=== PATIENT | female | born 1930 | race Caucasian/White ===

== ENCOUNTER 2017-04-01 14:50 | Emergency (ER) | payer OTHER ==
[2017-04-01 15:50] VITALS: BP 155/76; BMI 22.3
--- NOTE | 2017-04-01 16:19 | DR.EXTPAIN ---
HPI - Time seen Time seen: 16:17 - PCP Primary Care Physician: JENNA - HPI Comment HPI Comment: PAIN INCREASE WHEN PATIENT TRY WALKING. - Complaint/Symptoms Chief Complaint Doctor Comments: FOOT PAIN. INJURED RT FOOT LAST NIGHT. Chief Complaint:: INJURED TOE/FOOT (RIGHT) LAST NIGHT. EDEMA AND DISCOLORATION NOTED TO GREAT TOE. HX OF FX PREVIOUSLY. PAINFUL WHEN TRYING TO WALK - Nurses notes reviewed Nurses Notes Review: Yes - Source History Provided: Patient, Family Member - Mode of arrival Mode of Arrival: Wheelchair - Timing Onset of Chief Complaint: 03/31/17 - Context History of: None - Associated signs and symptoms Associated Signs and Symptoms: Pain PMH - PMH Past Medical History: Yes Past Medical History: Anemia, CHF, CVA, Diabetes, Dyslipidemia, Hypertension, [place] Past Surgical History: Yes Past Surgical History Comment: CATARACTS - Family History History of Family Medical Conditions: Yes Family Medical History: Diabetes Mellitus, [place], Coronary Artery Disease, Heart Failure, Hypertension - Social History Type of Tobacco Use: None Alcohol Use: None Do you use any recreational Drugs:: No Lives With: Family Lives Where: Home - infectious screening In the last 2 months have you had wt loss of >10#?: YES Have you had fever, night sweats or hemotysis?: No Have you traveled outside the country in the last 6 months?: No Isolation: Standard ROS - Review of Systems Constitutional: No Symptoms Reported Eyes: No Symptoms Reported ENTM: No Symptoms Reported Respiratoy: No Symptoms Reported Cardiovascular: No Symptoms Reported Gastrointestinal/Abdominal: No Symptoms Reported Genitourinary: No Symptoms Reported Neurological: No Symptoms Reported Musculoskeletal: Right, Foot Integumentary: Bruises Hematologic/Lymphatic: Easy Bleeding, Easy Bruising Endocrine: No Symptoms Reported All Other Systems: Reviewed and Negative PE - Vital Signs Vitals: Temperature 97.9 F Pulse Rate 88 Respiratory Rate 18 Blood Pressure [Left Arm] 130/66 Blood Pressure 155/76 O2 Sat by Pulse Oximetry 97 - General Limitations: No Limitations General Appearance: Alert - Head Head Exam: Normal Inspection - Eyes Eye exam: Normal Appearance - ENT ENT Exam: Normal External Ear Exam - Neck Neck Exam: Normal Inspection - Chest Chest Inspection: Symmetric Chest Wall Rise - Respiratory Respiratory Exam: Normal Lung Sounds Bilat Respiratory Exam: Bilateral Clear to Auscultation - Cardiovascular Cardiovascular Exam: Regular Rate, Normal Rhythm, Normal Heart Sounds - Abdominal Exam Abdominal Exam: Normal Inspection - Extremities Extremities Exam: Tenderness (RIGHT FOOT. FOOT SWOLLEN AND TENDER), Joint Swelling (RIGHT GREAT TOE) - Lower Extremities Foot/Toe Exam: Tenderness, Swelling. negative: Full ROM Gait Exam: Observed & Limited by Pain - Back Back Exam: Normal Inspection - Neurological Neurological Exam: Alert, Oriented X3 - Skin Skin Exam: Erythema MDM - Differential Diagnosis Differential Diagnosis: Contusion (RT FOOT), Fracture (RT FOOT), Sprain (RT FOOT ) Course - Treatment Treatment: SEE ORDERS - Education/Counseling Education/Counseling: Patient, Family, Education Educated On: Diagnosis, Needs for Follow Up ROR - XRAY XRAY Interpreted by: Radiologist XRAY Findings: DISCUSS REPORT WITH PATIENT AND HER FAMILY. - Diagnosis Discharge Problem: Contusion of foot, left Qualifiers: Encounter type: initial encounter Qualified Code(s): S90.32XA - Contusion of left foot, initial encounter Fracture of foot bone, left, closed Qualifiers: Encounter type: initial encounter Qualified Code(s): S92.902A - Unspecified fracture of left foot, initial encounter for closed fracture - Discharge Plan Condition: Stable - Follow ups/Referrals Follow ups/Referrals: Oli Cartagena [Primary Care Provider] - 3 days DIEGO HANKINS [CONSULTING PHYSICIAN] - 3 days - Instructions Instructions: Foot Contusion, [id number], Metacarpal Fracture, [id number] Additional Instructions: RETURN TO ED IF WORSE.
--- NOTE | 2017-04-01 17:19 | RAD ---
History: Fall and right foot pain from fall yesterday Study: Three views right foot. Comparison: August 21, 2016 Findings: There is osteopenia. There is a nondisplaced fracture of the distal 4th metatarsal of unce rtain age. Some callus formation is suggested. This however is new since August 21. There is dorsa l soft tissue swelling. No significant osteophyte formation is demonstrated. Impression: 1. Nondisplaced fracture of uncertain age of the distal 4th metatarsal 2. Severe osteopenia. Dorsal soft tissue swelling. Reported By:
== END 2017-04-01 17:54 | disposition home or self-care (01) ==
LOC: ER 16:00
DX: S90.32XA Contusion of left foot, initial encounter (principal); S92.902A Unspecified fracture of left foot, initial encounter for closed fracture; M85.80 Other specified disorders of bone density and structure, unspecified site; W19.XXXA Unspecified fall, initial encounter; Y92.9 Unspecified place or not applicable; M79.89 Other specified soft tissue disorders
CPT/HCPCS: 73630; 99282

== ENCOUNTER 2017-10-07 11:24 | Emergency (ER) | payer OTHER ==
[2017-10-07 11:28] VITALS: BP 100/51; BMI 22.6
[2017-10-07] MEDS ORDERED: ROCEPHIN VIAL 500 MG IM ONE (11:47)
--- NOTE | 2017-10-07 11:47 | DR.GENAD ---
HPI - PCP Primary Care Physician: JENNA - Complaint/Symptoms Chief Complaint Doctors Comments: Patient admits to abscess jaw secondary to a tooth infection. The tooth is now broken off. She admits to seeing dentist if can next week. Chief Complaint:: RIGHT SIDE OF FACE SWOLLEN AND PAINFUL. PT. HAD A TOOTH ON THE TOP RIGHT SIDE BREAK OFF A LITTLE WHILE BACK, FACE BECAME SWOLLEN YESTERDAY - Source History Provided: Patient, Family Member - Mode of Arrival Mode of Arrival: Wheelchair - Timing Onset of Chief Complaint: 10/06/17 PMH - PMH Past Medical History: Yes Past Medical History: Anemia, CHF, CVA, Diabetes, Dyslipidemia, Hypertension, [place] Past Surgical History: Yes Past Surgical History Comment: CATARACTS - Family History History of Family Medical Conditions: Yes Family Medical History: Diabetes Mellitus, [place], Coronary Artery Disease, Heart Failure, Hypertension - Social History Does patient currently use any type of tobacco product: No Have you used tobacco products in the last 12 months: No Type of Tobacco Use: None Does any household member use tobacco: No Alcohol Use: None Do you use any recreational Drugs:: No Lives With: Family Lives Where: Home - infectious screening In the last 2 months have you had wt loss of >10#?: NO Have you had fever, night sweats or hemotysis?: No Have you traveled outside the country in the last 6 months?: No Isolation: Standard ROS - Review of Systems Eyes: No Symptoms Reported ENTM: No Symptoms Reported Respiratoy: No Symptoms Reported Cardiovascular: No Symptoms Reported Gastrointestinal/Abdominal: No Symptoms Reported Genitourinary: No Symptoms Reported Neurological: No Symptoms Reported Musculoskeletal: No Symptoms Reported Integumentary: No Symptoms Reported Hematologic/Lymphatic: No Symptoms Reported Endocrine: No Symptoms Reported Psychiatric: No Symptoms Reported All Other Systems: Reviewed and Negative PE - Vital Signs Vitals: Temperature 98.9 F Pulse Rate 96 Respiratory Rate 17 Blood Pressure [Left Arm] 130/66 Blood Pressure 100/51 O2 Sat by Pulse Oximetry 95 - General Limitations: No Limitations General Appearance: Alert, In No Apparent Distress - Head Head Exam: Normal Inspection, Atraumatic - Eyes Eye exam: Normal Appearance, PERRL, EOMI - ENT ENT Exam: Normal Exam External Ear Exam: Normal External Inspection TM/Canal Exam: Bilateral Normal Nose Exam: Normal Nose Exam Mouth Exam: Other (broken tooth #13, swollen right jaw) Throat Exam: Normal Inspection - Neck Neck Exam: Normal Inspection - Chest Chest Inspection: Normal Inspection - Respiratory Respiratory Exam: Normal Lung Sounds Bilat Respiratory Exam: Bilateral Clear to Auscultation - Cardiovascular Cardiovascular Exam: Regular Rate, Normal Rhythm - Abdominal Exam Abdominal Exam: Normal Inspection, Normal Bowel Sounds Abdominal Tenderness: negative: RUQ, RLQ, LUQ, LLQ, Epigastrium, Suprapubic, Diffuse, Mild, Moderate, Severe, Other - Extremities Extremities Exam: Normal Inspection - Back Back Exam: Normal Inspection - Neurologic Neurological Exam: Alert, Oriented X3, CN II-XII Intact - Psychiatric Psychiatric Exam: Normal Affect, Normal Mood - Skin Skin Exam: Warm, Dry - Diagnosis Discharge Problem: Dental abscess - Discharge Plan Condition: Stable - Follow ups/Referrals Follow ups/Referrals: Oli Cartagena [Primary Care Provider] - 3 days - Instructions
[2017-10-07] MEDS ORDERED: ROCEPHIN VIAL 500 MG ONE (11:48)
[2017-10-07] MEDS ORDERED: XYLOCAINE 1 % (PLAIN) ONE (11:48)
== END 2017-10-07 12:08 | disposition home or self-care (01) ==
LOC: ER 11:48
DX: K04.7 Periapical abscess without sinus (principal)
CPT/HCPCS: 96372; 99282; J0696; J2001

== ENCOUNTER 2018-01-14 11:02 | Emergency (ER) | payer OTHER ==
[2018-01-14 11:07] VITALS: BP 127/71; BMI 24.1
--- NOTE | 2018-01-14 11:36 | RAD ---
Examination: Right hand, three views History: Trauma Findings: No definite fracture or dislocation. There is marked soft tissue swelling over the dorsum o f the hand at metacarpal levels. There is osteopenia consistent with advanced age. Mild joint narrowi ng is present. Impression: Massive dorsal soft tissue swelling consistent with hematoma. No fracture identified. Reported By:
--- NOTE | 2018-01-14 11:48 | DR.EXTPAIN ---
HPI - Time seen Time seen: 11:40 - PCP Primary Care Physician: JENNA - Complaint/Symptoms Chief Complaint Doctor Comments: Bruise and swelling to right hand. Injury yesterday. Chief Complaint:: PT. HURT HER HAND WHILE GETTING OFF OF THE COMMODE LAST NIGHT. PT. C/O BRUISING, SWELLING, AND PAIN TO RIGHT HAND. LARGE HEMATOMA NOTED TO RIGHT HAND. - Nurses notes reviewed Nurses Notes Review: Yes - Source History Provided: Patient, Family Member - Mode of arrival Mode of Arrival: Wheelchair - Timing Onset of Chief Complaint: 01/13/18 PMH - PMH Past Medical History: Yes Past Medical History: Anemia, CHF, CVA, Diabetes, Dyslipidemia, Hypertension, [place] Past Surgical History: Yes Surgical History: Other Past Surgical History Comment: CATARACTS - Family History History of Family Medical Conditions: Yes Family Medical History: Diabetes Mellitus, [place], Coronary Artery Disease, Heart Failure, Hypertension - Social History Does patient currently use any type of tobacco product: No Have you used tobacco products in the last 12 months: No Type of Tobacco Use: None Does any household member use tobacco: No Alcohol Use: None Do you use any recreational Drugs:: No Lives With: Family Lives Where: Home - infectious screening In the last 2 months have you had wt loss of >10#?: NO Have you had fever, night sweats or hemotysis?: No Have you traveled outside the country in the last 6 months?: No Isolation: Standard ROS - Review of Systems Constitutional: No Symptoms Reported Eyes: No Symptoms Reported ENTM: No Symptoms Reported Respiratoy: No Symptoms Reported Cardiovascular: No Symptoms Reported Gastrointestinal/Abdominal: No Symptoms Reported Genitourinary: No Symptoms Reported Neurological: No Symptoms Reported Musculoskeletal: Right, Hand (pain) Integumentary: Bruises (right hand) Hematologic/Lymphatic: No Symptoms Reported Endocrine: No Symptoms Reported Psychiatric: No Symptoms Reported All Other Systems: Reviewed and Negative PE - Vital Signs Vitals: Temperature 98.7 F Pulse Rate 74 Respiratory Rate 17 Blood Pressure [Left Arm] 130/66 Blood Pressure 127/71 O2 Sat by Pulse Oximetry 95 - General Limitations: No Limitations General Appearance: Alert, In No Apparent Distress - Head Head Exam: Normal Inspection - Eyes Eye exam: Normal Appearance - ENT ENT Exam: Normal Exam - Neck Neck Exam: Normal Inspection - Chest Chest Inspection: Normal Inspection - Respiratory Respiratory Exam: Normal Lung Sounds Bilat - Cardiovascular Cardiovascular Exam: Regular Rate, Normal Rhythm - Abdominal Exam Abdominal Exam: Normal Inspection, Normal Bowel Sounds, Soft - Upper Extremities Shoulder Exam: Normal Inspection, Full ROM Arm Exam: Normal Inspection, Full ROM Elbow Exam: Normal Inspection, Full ROM Forearm Exam: Normal Inspection, Full ROM Hand Exam: Full ROM, Swelling (on dorsum), Ecchymosis (dorsum right hand), Other (hematoma dorsum right hand) Neuromotor Exam: Normal Exam - Neurological Neurological Exam: Alert, Oriented X3, CN II-XII Intact - Psychiatric Psychiatric Exam: Normal Affect, Normal Mood - Skin Skin Exam: Warm, Dry, Intact MDM - Differential Diagnosis Differential Diagnosis: Hematoma ROR - XRAY XRAY Interpreted by: Self (Rt. hand: No fracture. STS noted.) - Diagnosis Discharge Problem: Traumatic hematoma of hand - Discharge Plan Disposition: 01 HOME, SELF-CARE Condition: Stable - Follow ups/Referrals Follow ups/Referrals: Oli Cartagena [Primary Care Provider] - 3 days - Instructions
== END 2018-01-14 11:57 | disposition home or self-care (01) ==
LOC: ER 11:11
DX: S60.221A Contusion of right hand, initial encounter (principal); Y33.XXXA Other specified events, undetermined intent, initial encounter; Y92.9 Unspecified place or not applicable
CPT/HCPCS: 73130; 99282

== ENCOUNTER 2018-01-16 16:32 | Inpatient (IN) | payer OTHER ==
[2018-01-16 18:07] LABS: BASOPHILS % (AUTO) 0.3 % (0.2-1.0); EOSINOPHILS # (AUTO) 0.4 x10^3/uL (0.0-0.2); EOSINOPHILS % (AUTO) 4.5 % (0.9-2.9); HEMATOCRIT 36.4 % (36.0-47.0); HEMOGLOBIN 12.2 g/dL (12.0-16.0); LYMPHOCYTES # (AUTO) 1.3 X10^3/uL (1.3-2.9); LYMPHOCYTES % (AUTO) 14.9 % (21.0-51.0); MEAN CORPUSCULAR HEMOGLOBIN 32.6 pg (27.0-34.0); MEAN CORPUSCULAR HGB CONC 33.5 g/dL (33.0-35.0); MEAN CORPUSCULAR VOLUME 97.3 fL (80.0-100.0); MEAN PLATELET VOLUME 7.5 fL (7.4-11.0); MONOCYTES # (AUTO) 0.9 x10^3/uL (0.3-0.8); MONOCYTES % (AUTO) 9.9 % (0.0-13.0); NEUTROPHILS # (AUTO) 6.2 x10^3/uL (2.2-4.8); NEUTROPHILS % (AUTO) 70.4 % (42.0-75.0); PLATELET COUNT 303 X10^3/uL (150.0-450.0); RED BLOOD COUNT 3.74 X10^6/uL (3.5-5.4); WHITE BLOOD COUNT 8.7 X10^3/uL (3.6-10.0)
[2018-01-16 18:19] LABS: ALANINE AMINOTRANSFERASE 15 Units/L (12-78); ALBUMIN 4.1 g/dL (3.4-5.0); ALKALINE PHOSPHATASE 79 Units/L (46-116); ASPARTATE AMINO TRANSFERASE 15 Units/L (15-37); BLOOD UREA NITROGEN 27 mg/dL (7-18); CALCIUM 9.6 mg/dL (8.5-10.1); CARBON DIOXIDE 30.8 mmol/L (21-32); CHLORIDE 96 mmol/L (98-107); COR NA(FOR HYPERGLY) 139 mmol/L (136-145); CREATININE 1.34 mg/dL (0.55-1.02); SODIUM 136 mmol/L (136-145); TOTAL PROTEIN 9.3 g/dL (6.4-8.2); eGFR BLACK RACES 48 (>60); eGFR NON BLACK RACES 40 (>60)
[2018-01-16 19:58] VITALS: BMI 22.3
[2018-01-16] MEDS: NS 1000 ML 1,000 ML IV SCH (21:26)
[2018-01-16] MEDS: ZOSYN VIAL 3.375 GM 3.375 GM in NS 100 ML IV + SPIKE MINIBAG* 100 ML IV SCH ×2 (21:27→22:18)
[2018-01-17 05:12] LABS: BASOPHILS % (AUTO) 0.4 % (0.2-1.0); EOSINOPHILS # (AUTO) 0.3 x10^3/uL (0.0-0.2); EOSINOPHILS % (AUTO) 3.9 % (0.9-2.9); HEMATOCRIT 32.4 % (36.0-47.0); HEMOGLOBIN 10.9 g/dL (12.0-16.0); LYMPHOCYTES # (AUTO) 1.1 X10^3/uL (1.3-2.9); LYMPHOCYTES % (AUTO) 15.1 % (21.0-51.0); MEAN CORPUSCULAR HEMOGLOBIN 32.5 pg (27.0-34.0); MEAN CORPUSCULAR HGB CONC 33.6 g/dL (33.0-35.0); MEAN CORPUSCULAR VOLUME 96.7 fL (80.0-100.0); MEAN PLATELET VOLUME 7.8 fL (7.4-11.0); MONOCYTES # (AUTO) 0.8 x10^3/uL (0.3-0.8); MONOCYTES % (AUTO) 10.9 % (0.0-13.0); NEUTROPHILS # (AUTO) 5.3 x10^3/uL (2.2-4.8); NEUTROPHILS % (AUTO) 69.7 % (42.0-75.0); PLATELET COUNT 258 X10^3/uL (150.0-450.0); RED BLOOD COUNT 3.35 X10^6/uL (3.5-5.4); RED CELL DISTRIBUTION WIDTH 14.1 % (11.6-16.5); WHITE BLOOD COUNT 7.6 X10^3/uL (3.6-10.0)
[2018-01-17] MEDS: ZOSYN VIAL 3.375 GM 3.375 GM in NS 100 ML IV + SPIKE MINIBAG* 100 ML IV SCH ×3 (05:17→22:13)
[2018-01-17] MEDS: HumuLIN R SUBCUT PRN ×3 (05:19→17:15)
[2018-01-17 05:22] LABS: ALBUMIN 3.2 g/dL (3.4-5.0); CALCIUM 8.9 mg/dL (8.5-10.1); CARBON DIOXIDE 27.1 mmol/L (21-32); COR CA(FOR HYPOALB) 9.5 mg/dL (8.5-10.1); CREATININE 1.18 mg/dL (0.55-1.02); TOTAL PROTEIN 7.6 g/dL (6.4-8.2)
[2018-01-17] MEDS: NS 1000 ML 1,000 ML IV SCH ×2 (06:22→22:13)
--- NOTE | 2018-01-17 10:57 | DR.UPDATE ---
H&P Update History and Physical Update: WAS SEEN IN THE OFFICE ON 01/16/2018. SHE WAS ADMITTED FOR RIGHT HAND CELLULITIS AND HEMATOMA FOLLOWING A FALL. A H&P WAS COMPLETED PRIOR TO ADMISSION. PATIENT HAS BEEN SEEN AND EXAMINED WITH NO CHANGES NOTED TO H&P. Changes noted: NO Yes with the following:
[2018-01-17] MEDS: NEURONTIN CAP 100 MG PO SCH ×2 (13:06→20:45)
[2018-01-17] MEDS: HEMOCYTE-PLUS PO SCH (13:06)
[2018-01-17] MEDS: ISOSORBIDE MONONITRATE ER PO SCH (13:07)
[2018-01-17] MEDS: GLUCOPHAGE XR PO SCH ×2 (13:07→20:45)
[2018-01-17] MEDS: SYNTHROID 100 mcg TAB PO SCH (13:07)
[2018-01-17] MEDS: XANAX PO SCH ×2 (13:07→20:46)
[2018-01-17] MEDS: COMBIGAN EYE DROPS EACHEYE SCH ×2 (13:09→20:47)
[2018-01-17] MEDS: INSULIN DEGLUDEC 14 UNIT SC SCH (15:03)
[2018-01-17] MEDS: ANTIVERT TAB 25 MG PO SCH ×2 (15:31→20:45)
--- NOTE | 2018-01-17 18:41 | DR.PROGNOT ---
Hospital Progress Notes - Progress Note for Day of: Progress Note Date: 01/17/18 - Chief Complaint Chief Complaint: Rt hand is still swollen and tender , Pt is able to move all the fingers better than yesterday .. no active bleeding from the incision site on the dorsal aspect. - Past Medical Family Social History Allergies: Allergies gatifloxacin [From Tequin] Allergy (Verified 01/14/18 11:07) sulfamethoxazole [From Septra] Allergy (Verified 01/14/18 11:07) trimethoprim [From Septra] Allergy (Verified 01/14/18 11:07) - Vital Signs Vital Signs: Temperature 98.4 F Pulse Rate [Left Brachial] 82 Respiratory Rate 18 Blood Pressure [Left Arm] 129/81 Blood Pressure 127/71 O2 Sat by Pulse Oximetry 96 - Physical Exam Musculoskeletal: Hand (deep soft tissue hematoma with large area of ecchymosis involving the Rt hand with blisters .no expanding hematoma , and pt is having good ROM of all of the gingers . has good radial pulse) Speech Pattern: Clear, Appropriate - Laboratory and Diagnostics Result Diagrams: 01/17/18 04:10 01/17/18 04:10 Labs: 01/16/18 17:58 Hand - Right Gram Stain - Final 01/16/18 17:58 Hand - Right Wound Culture - Preliminary Laboratory WBC 7.6 X10^3/uL (3.6-10.0) 01/17/18 04:10 RBC 3.35 X10^6/uL (3.5-5.4) L 01/17/18 04:10 Hgb 10.9 g/dL (12.0-16.0) L 01/17/18 04:10 Hct 32.4 % (36.0-47.0) L 01/17/18 04:10 MCV 96.7 fL (80.0-100.0) 01/17/18 04:10 MCH 32.5 pg (27.0-34.0) 01/17/18 04:10 MCHC 33.6 g/dL (33.0-35.0) 01/17/18 04:10 RDW 14.1 % (11.6-16.5) 01/17/18 04:10 Plt Count 258 X10^3/uL (150.0-450.0) 01/17/18 04:10 MPV 7.8 fL (7.4-11.0) 01/17/18 04:10 Neut % 69.7 % (42.0-75.0) 01/17/18 04:10 Lymph % 15.1 % (21.0-51.0) L 01/17/18 04:10 [place] % 10.9 % (0.0-13.0) 01/17/18 04:10 Eos % 3.9 % (0.9-2.9) H 01/17/18 04:10 Baso % 0.4 % (0.2-1.0) 01/17/18 04:10 Neut # 5.3 x10^3/uL (2.2-4.8) H 01/17/18 04:10 Lymph # 1.1 X10^3/uL (1.3-2.9) L 01/17/18 04:10 [place] # 0.8 x10^3/uL (0.3-0.8) 01/17/18 04:10 Eos # 0.3 x10^3/uL (0.0-0.2) H 01/17/18 04:10 Baso # 0.0 X10^3/uL (0.0-0.1) 01/17/18 04:10 Absolute Nucleated RBC 0.0 /100WBC 01/17/18 04:10 Sodium 136 mmol/L (136-145) 01/17/18 04:10 Corrected Sodium 141 mmol/L (136-145) 01/17/18 04:10 Potassium 3.8 mmol/L (3.5-5.1) 01/17/18 04:10 Chloride 100 mmol/L (98-107) 01/17/18 04:10 Carbon Dioxide 27.1 mmol/L (21-32) 01/17/18 04:10 BUN 25 mg/dL (7-18) H 01/17/18 04:10 Creatinine 1.18 mg/dL (0.55-1.02) H 01/17/18 04:10 Est GFR (MDRD) Af Amer 56 (>60) L 01/17/18 04:10 Est GFR (MDRD) Non-Af 46 (>60) L 01/17/18 04:10 Glucose 301 mg/dL (65-99) H 01/17/18 04:10 POC Glucose (mg/dL) 338 mg/dL (65-99) H 01/17/18 16:12 Calcium 8.9 mg/dL (8.5-10.1) 01/17/18 04:10 Corrected Calcium 9.5 mg/dL (8.5-10.1) 01/17/18 04:10 Total Bilirubin 0.40 mg/dL (0.2-1.0) 01/17/18 04:10 AST 14 Units/L (15-37) L 01/17/18 04:10 ALT 15 Units/L (12-78) 01/17/18 04:10 Alkaline Phosphatase 61 Units/L (46-116) 01/17/18 04:10 Total Protein 7.6 g/dL (6.4-8.2) 01/17/18 04:10 Albumin 3.2 g/dL (3.4-5.0) L 01/17/18 04:10 Globulin 4.4 g/dL (2.5-4.5) 01/17/18 04:10 Albumin/Globulin Ratio 0.7 Ratio (1.1-2.1) L 01/17/18 04:10 - Assessment and Plan 1: large soft tissue hematoma Rt hand with multiple blisters and edema of the hand . pt has coagulopathy 2ed to several anticoagulants - Problem Patient Problems: keep Rt hand elevated all the time using sling , local care with antibiotics , observe for any vascular compromise or compartment syndrome .. no need for surgery now .
[2018-01-17] MEDS: NEOSPORIN OINT TOP PRN (19:55)
[2018-01-17] MEDS: ZOCOR TAB 40 MG PO SCH (20:46)
[2018-01-18] MEDS: ZOSYN VIAL 3.375 GM 3.375 GM in NS 100 ML IV + SPIKE MINIBAG* 100 ML IV SCH ×3 (05:24→21:15)
[2018-01-18 05:26] LABS: BASOPHILS # (AUTO) 0.1 X10^3/uL (0.0-0.1); BASOPHILS % (AUTO) 1.5 % (0.2-1.0); EOSINOPHILS # (AUTO) 0.6 x10^3/uL (0.0-0.2); EOSINOPHILS % (AUTO) 8.2 % (0.9-2.9); HEMATOCRIT 31.1 % (36.0-47.0); HEMOGLOBIN 10.2 g/dL (12.0-16.0); LYMPHOCYTES # (AUTO) 1.2 X10^3/uL (1.3-2.9); LYMPHOCYTES % (AUTO) 16.5 % (21.0-51.0); MEAN CORPUSCULAR HEMOGLOBIN 32.5 pg (27.0-34.0); MEAN CORPUSCULAR HGB CONC 32.9 g/dL (33.0-35.0); MEAN CORPUSCULAR VOLUME 98.8 fL (80.0-100.0); MEAN PLATELET VOLUME 7.8 fL (7.4-11.0); MONOCYTES # (AUTO) 0.7 x10^3/uL (0.3-0.8); MONOCYTES % (AUTO) 10.2 % (0.0-13.0); NEUTROPHILS # (AUTO) 4.6 x10^3/uL (2.2-4.8); NEUTROPHILS % (AUTO) 63.6 % (42.0-75.0); PLATELET COUNT 239 X10^3/uL (150.0-450.0); RED BLOOD COUNT 3.15 X10^6/uL (3.5-5.4); RED CELL DISTRIBUTION WIDTH 14.4 % (11.6-16.5); WHITE BLOOD COUNT 7.2 X10^3/uL (3.6-10.0)
[2018-01-18 05:30] LABS: ALBUMIN 2.8 g/dL (3.4-5.0); CALCIUM 8.2 mg/dL (8.5-10.1); COR CA(FOR HYPOALB) 9.2 mg/dL (8.5-10.1); CREATININE 1.36 mg/dL (0.55-1.02); TOTAL PROTEIN 6.9 g/dL (6.4-8.2)
[2018-01-18] MEDS: HumuLIN R SUBCUT PRN ×2 (05:59→13:20)
[2018-01-18] MEDS: NS 1000 ML 1,000 ML IV SCH ×2 (06:00→20:24)
[2018-01-18] MEDS: COMBIGAN EYE DROPS EACHEYE SCH ×2 (09:00→20:24)
[2018-01-18] MEDS ORDERED: NEOSPORIN OINT TOP SCH (09:00)
[2018-01-18] MEDS: HEMOCYTE-PLUS PO SCH (09:11)
[2018-01-18] MEDS: PLETAL PO SCH (09:11)
[2018-01-18] MEDS: ISOSORBIDE MONONITRATE ER PO SCH (09:11)
[2018-01-18] MEDS: NEURONTIN CAP 100 MG PO SCH ×2 (09:11→20:23)
[2018-01-18] MEDS: ANTIVERT TAB 25 MG PO SCH ×2 (09:11→20:23)
[2018-01-18] MEDS: MICRO K EXTEN CAP 10 MEQ PO SCH ×2 (09:11→20:24)
[2018-01-18] MEDS: GLUCOPHAGE XR PO SCH ×2 (09:12→20:23)
[2018-01-18] MEDS: SYNTHROID 100 mcg TAB PO SCH (09:12)
[2018-01-18] MEDS ORDERED: DILAUDID INJ ONE (10:02)
[2018-01-18] MEDS: INSULIN DEGLUDEC 14 UNIT SC SCH (11:51)
[2018-01-18] MEDS: XANAX PO SCH ×2 (11:52→20:22)
--- NOTE | 2018-01-18 11:57 | PCM.PROG ---
Progress Note - Progress Note for Day of Date: 01/17/18 - Subjective Subjective: WAS ADMITTED FOR RIGHT HAND CELLULITIS AND A HEMATOMA FOLLOWING A FALL AT HOME OVER THE WEEKEND. TODAY, SHE IS ALERT AND ORIENTED, SITTING UP IN BED ON MORNING ROUNDS. RIGHT ARM/HAND IS NOTED TO BE IN A SLING, ELEVATED ON PILLOWS. CONSULTED WITH PATIENT YESTERDAY AND MADE A SMALL INCISION TO THE TOP OF HAND TO DRAIN AND RELIEVE PRESSURE. FLUID FROM WOUND WAS CULTURED AND SENT TO LAB. RIGHT HAND CONTINUES TO BE SWOLLEN AND TENDER TODAY AND NOTED WITH BISTERS. THERE IS NORMAL CAPILLARY REFILL NOTED TO DIGITS OF RIGHT HAND. NO ACTIVE BLEEDING NOTED FROM SITE. SHE ONLY REPORTS MINOR PAIN THIS MORNING. HER VITALS THIS MORNING ARE 98.2-74-18-97%-183/86. LABS WERE OBTAINED. ABNORMAL LAB VALUES INCLUDE THE FOLLOWING: TBC 3.35, HGB 10.9, HCT 32.4, BUN 25, CREATININE 1.18, GLUCOSE 301, AST 14, ALBUMIN 3.2. BLOOD CULTURES AND WOUND CULTURES ARE PENDING. TODAY, WE WILL CONTINUE WITH IV ANTIBIOTICS AND WOUND CARE PER INSTRUCTIONS. WE PLAN TO FOLLOW UP WITH AM LABS AND CONTINUE TO MONITOR PATIENT FOR VASCULAR COMPROMIS OR COMPARTMENT SYNDROME. - Past Medical Family Social History Past Med/Fam/Surg Hx: No changes since H&P Allergies: Allergies gatifloxacin [From Tequin] Allergy (Verified 01/14/18 11:07) sulfamethoxazole [From Septra] Allergy (Verified 01/14/18 11:07) trimethoprim [From Septra] Allergy (Verified 01/14/18 11:07) - Review of Systems ROS: No change since H&P - Vital Signs and I&O's Vital Signs: Temperature 97.4 F Pulse Rate [Left Brachial] 63 Respiratory Rate 20 Blood Pressure [Left Arm] 133/60 Blood Pressure 127/71 O2 Sat by Pulse Oximetry 96 Intake and Output: Intake & Output 01/15/18 01/16/18 01/17/18 01/18/18 11:59 11:59 11:59 11:59 Intake Total 1110 1520 Balance 1110 1520 - Physical Exam Oriented: Normal Eyes: Normal Ear: Normal Nose: Normal Throat: Normal Respiratory: Normal Cardiovascular: Normal : Normal Auscultation: Bowel Sounds: Normal Palpation: Normal Tenderness: Normal Skin: Wound (RIGHT HAND SWOLLEN, TENDER, RED, BLISTERS) Musculoskeletal: Right, Hand (deep soft tissue hematoma with large area of ecchymosis involving the Rt hand with blisters .no expanding hematoma , and pt is having good ROM of all of the gingers . has good radial pulse) Psychiatric: Normal Mood Description: Calm Affect: Normal Speech Pattern: Clear, Appropriate - Laboratory and Diagnostics Result Diagrams: 01/18/18 04:30 01/18/18 04:30 Labs: 01/16/18 17:45 Blood Blood Culture - Preliminary 01/16/18 17:55 Blood Blood Culture - Preliminary 01/16/18 17:58 Hand - Right Gram Stain - Final 01/16/18 17:58 Hand - Right Wound Culture - Preliminary Laboratory WBC 7.2 X10^3/uL (3.6-10.0) 01/18/18 04:30 RBC 3.15 X10^6/uL (3.5-5.4) L 01/18/18 04:30 Hgb 10.2 g/dL (12.0-16.0) L 01/18/18 04:30 Hct 31.1 % (36.0-47.0) L 01/18/18 04:30 MCV 98.8 fL (80.0-100.0) 01/18/18 04:30 MCH 32.5 pg (27.0-34.0) 01/18/18 04:30 MCHC 32.9 g/dL (33.0-35.0) L 01/18/18 04:30 RDW 14.4 % (11.6-16.5) 01/18/18 04:30 Plt Count 239 X10^3/uL (150.0-450.0) 01/18/18 04:30 MPV 7.8 fL (7.4-11.0) 01/18/18 04:30 Neut % 63.6 % (42.0-75.0) 01/18/18 04:30 Lymph % 16.5 % (21.0-51.0) L 01/18/18 04:30 [place] % 10.2 % (0.0-13.0) 01/18/18 04:30 Eos % 8.2 % (0.9-2.9) H 01/18/18 04:30 Baso % 1.5 % (0.2-1.0) H 01/18/18 04:30 Neut # 4.6 x10^3/uL (2.2-4.8) 01/18/18 04:30 Lymph # 1.2 X10^3/uL (1.3-2.9) L 01/18/18 04:30 [place] # 0.7 x10^3/uL (0.3-0.8) 01/18/18 04:30 Eos # 0.6 x10^3/uL (0.0-0.2) H 01/18/18 04:30 Baso # 0.1 X10^3/uL (0.0-0.1) 01/18/18 04:30 Absolute Nucleated RBC 0.0 /100WBC 01/18/18 04:30 Sodium 139 mmol/L (136-145) 01/18/18 04:30 Corrected Sodium 144 mmol/L (136-145) 01/18/18 04:30 Potassium 3.9 mmol/L (3.5-5.1) 01/18/18 04:30 Chloride 103 mmol/L (98-107) 01/18/18 04:30 Carbon Dioxide 27.0 mmol/L (21-32) 01/18/18 04:30 BUN 28 mg/dL (7-18) H 01/18/18 04:30 Creatinine 1.36 mg/dL (0.55-1.02) H 01/18/18 04:30 Est GFR (MDRD) Af Amer 47 (>60) L 01/18/18 04:30 Est GFR (MDRD) Non-Af 39 (>60) L 01/18/18 04:30 Glucose 310 mg/dL (65-99) H 01/18/18 04:30 POC Glucose (mg/dL) 320 mg/dL (65-99) H 01/18/18 05:38 Calcium 8.2 mg/dL (8.5-10.1) L 01/18/18 04:30 Corrected Calcium 9.2 mg/dL (8.5-10.1) 01/18/18 04:30 Total Bilirubin 0.40 mg/dL (0.2-1.0) 01/18/18 04:30 AST 12 Units/L (15-37) L 01/18/18 04:30 ALT 16 Units/L (12-78) 01/18/18 04:30 Alkaline Phosphatase 54 Units/L (46-116) 01/18/18 04:30 Total Protein 6.9 g/dL (6.4-8.2) 01/18/18 04:30 Albumin 2.8 g/dL (3.4-5.0) L 01/18/18 04:30 Globulin 4.1 g/dL (2.5-4.5) 01/18/18 04:30 Albumin/Globulin Ratio 0.7 Ratio (1.1-2.1) L 01/18/18 04:30 - Plan (1) Cellulitis of hand, right Status: Acute Plan: IV ANTIBIOTICS, WOUND CARE, CONTINUE TO MONTIOR (2) Hematoma Status: Acute Plan: IV ANTIBIOTICS, WOUND CARE, CONTINUE TO MONTIOR
[2018-01-18] MEDS: ZOCOR TAB 40 MG PO SCH (20:25)
[2018-01-19] MEDS: ZOSYN VIAL 3.375 GM 3.375 GM in NS 100 ML IV + SPIKE MINIBAG* 100 ML IV SCH ×3 (05:11→21:45)
[2018-01-19 06:05] LABS: BASOPHILS % (AUTO) 0.4 % (0.2-1.0); EOSINOPHILS # (AUTO) 0.6 x10^3/uL (0.0-0.2); EOSINOPHILS % (AUTO) 7.3 % (0.9-2.9); HEMATOCRIT 30.7 % (36.0-47.0); HEMOGLOBIN 10.1 g/dL (12.0-16.0); LYMPHOCYTES # (AUTO) 1.1 X10^3/uL (1.3-2.9); MEAN CORPUSCULAR HEMOGLOBIN 32.7 pg (27.0-34.0); MEAN CORPUSCULAR VOLUME 99.3 fL (80.0-100.0); MEAN PLATELET VOLUME 7.8 fL (7.4-11.0); MONOCYTES # (AUTO) 0.6 x10^3/uL (0.3-0.8); MONOCYTES % (AUTO) 7.7 % (0.0-13.0); NEUTROPHILS # (AUTO) 5.8 x10^3/uL (2.2-4.8); NEUTROPHILS % (AUTO) 70.6 % (42.0-75.0); PLATELET COUNT 244 X10^3/uL (150.0-450.0); RED CELL DISTRIBUTION WIDTH 14.1 % (11.6-16.5); WHITE BLOOD COUNT 8.2 X10^3/uL (3.6-10.0)
[2018-01-19] MEDS: HumuLIN R SUBCUT PRN ×3 (06:24→17:03)
[2018-01-19 06:41] LABS: ALBUMIN 2.8 g/dL (3.4-5.0); CALCIUM 8.4 mg/dL (8.5-10.1); CARBON DIOXIDE 20.8 mmol/L (21-32); COR CA(FOR HYPOALB) 9.4 mg/dL (8.5-10.1); CREATININE 1.38 mg/dL (0.55-1.02)
[2018-01-19] MEDS: ISOSORBIDE MONONITRATE ER PO SCH (08:36)
[2018-01-19] MEDS: SYNTHROID 100 mcg TAB PO SCH (08:37)
[2018-01-19] MEDS: GLUCOPHAGE XR PO SCH ×2 (08:37→20:39)
[2018-01-19] MEDS: ANTIVERT TAB 25 MG PO SCH ×2 (08:37→20:38)
[2018-01-19] MEDS: PLETAL PO SCH (08:38)
[2018-01-19] MEDS: MICRO K EXTEN CAP 10 MEQ PO SCH ×2 (08:38→20:39)
[2018-01-19] MEDS: HEMOCYTE-PLUS PO SCH (08:39)
[2018-01-19] MEDS: NEURONTIN CAP 100 MG PO SCH ×2 (08:39→20:39)
[2018-01-19] MEDS: SNACK - Diabetic Appropriate PO SCH ×2 (08:42→20:40)
[2018-01-19] MEDS: NEOSPORIN OINT TOP PRN (09:00)
[2018-01-19] MEDS: COMBIGAN EYE DROPS EACHEYE SCH ×2 (10:05→20:40)
[2018-01-19] MEDS: INSULIN DEGLUDEC 14 UNIT SC SCH (10:07)
--- NOTE | 2018-01-19 12:14 | DR.PROGNOT ---
Hospital Progress Notes - Progress Note for Day of: Progress Note Date: 01/19/18 - Chief Complaint Chief Complaint: Rt hand is still swollen and tender , Pt is able to move all the fingers better than yesterday .. no active bleeding from the incision site on the dorsal aspect. - Past Medical Family Social History Past Med/Fam/Surg Hx: No changes since H&P Allergies: Allergies gatifloxacin [From Tequin] Allergy (Verified 01/14/18 11:07) sulfamethoxazole [From Septra] Allergy (Verified 01/14/18 11:07) trimethoprim [From Septra] Allergy (Verified 01/14/18 11:07) - Review Of Systems ROS: No change since H&P - Vital Signs Vital Signs: Temperature 97.7 F Pulse Rate [Left Brachial] 81 Respiratory Rate 18 Blood Pressure [Left Arm] 181/72 Blood Pressure 127/71 O2 Sat by Pulse Oximetry 92 - Physical Exam Oriented: Normal Eyes: Normal Ear: Normal Nose: Normal Throat: Normal Respiratory: Normal Cardiovascular: Normal : Normal GI:Auscultation: Normal GI:Palpation: Normal GI: Tenderness: Normal Skin: Wound (RIGHT HAND still SWOLLEN, the skin is not as tight but dusky looking . ,fingers are warm with good blood supply ..radial pulse is srtong..) Musculoskeletal: Right, Hand (deep soft tissue hematoma with large area of ecchymosis involving the Rt hand with blisters .no expanding hematoma , and pt is having good ROM of all of the gingers . has good radial pulse) Psychiatric: Normal Mood Description: Calm Affect: Normal Speech Pattern: Clear, Appropriate - Laboratory and Diagnostics Result Diagrams: 01/19/18 04:15 01/19/18 04:15 Labs: 01/16/18 17:58 Hand - Right Gram Stain - Final 01/16/18 17:58 Hand - Right Wound Culture - Preliminary 01/16/18 17:45 Blood Blood Culture - Preliminary 01/16/18 17:55 Blood Blood Culture - Preliminary Laboratory WBC 8.2 X10^3/uL (3.6-10.0) 01/19/18 04:15 RBC 3.10 X10^6/uL (3.5-5.4) L 01/19/18 04:15 Hgb 10.1 g/dL (12.0-16.0) L 01/19/18 04:15 Hct 30.7 % (36.0-47.0) L 01/19/18 04:15 MCV 99.3 fL (80.0-100.0) 01/19/18 04:15 MCH 32.7 pg (27.0-34.0) 01/19/18 04:15 MCHC 33.0 g/dL (33.0-35.0) 01/19/18 04:15 RDW 14.1 % (11.6-16.5) 01/19/18 04:15 Plt Count 244 X10^3/uL (150.0-450.0) 01/19/18 04:15 MPV 7.8 fL (7.4-11.0) 01/19/18 04:15 Neut % 70.6 % (42.0-75.0) 01/19/18 04:15 Lymph % 14.0 % (21.0-51.0) L 01/19/18 04:15 Caroline % 7.7 % (0.0-13.0) 01/19/18 04:15 Eos % 7.3 % (0.9-2.9) H 01/19/18 04:15 Baso % 0.4 % (0.2-1.0) 01/19/18 04:15 Neut # 5.8 x10^3/uL (2.2-4.8) H 01/19/18 04:15 Lymph # 1.1 X10^3/uL (1.3-2.9) L 01/19/18 04:15 Caroline # 0.6 x10^3/uL (0.3-0.8) 01/19/18 04:15 Eos # 0.6 x10^3/uL (0.0-0.2) H 01/19/18 04:15 Baso # 0.0 X10^3/uL (0.0-0.1) 01/19/18 04:15 Absolute Nucleated RBC 0.1 /100WBC 01/19/18 04:15 Sodium 136 mmol/L (136-145) 01/19/18 04:15 Corrected Sodium 143 mmol/L (136-145) 01/19/18 04:15 Potassium 4.5 mmol/L (3.5-5.1) 01/19/18 04:15 Chloride 102 mmol/L (98-107) 01/19/18 04:15 Carbon Dioxide 20.8 mmol/L (21-32) L 01/19/18 04:15 BUN 32 mg/dL (7-18) H 01/19/18 04:15 Creatinine 1.38 mg/dL (0.55-1.02) H 01/19/18 04:15 Est GFR (MDRD) Af Amer 46 (>60) L 01/19/18 04:15 Est GFR (MDRD) Non-Af 38 (>60) L 01/19/18 04:15 Glucose 391 mg/dL (65-99) H 01/19/18 04:15 POC Glucose (mg/dL) 310 mg/dL (65-99) H 01/19/18 11:58 Calcium 8.4 mg/dL (8.5-10.1) L 01/19/18 04:15 Corrected Calcium 9.4 mg/dL (8.5-10.1) 01/19/18 04:15 Total Bilirubin 0.50 mg/dL (0.2-1.0) 01/19/18 04:15 AST 13 Units/L (15-37) L 01/19/18 04:15 ALT 15 Units/L (12-78) 01/19/18 04:15 Alkaline Phosphatase 55 Units/L (46-116) 01/19/18 04:15 Total Protein 7.0 g/dL (6.4-8.2) 01/19/18 04:15 Albumin 2.8 g/dL (3.4-5.0) L 01/19/18 04:15 Globulin 4.2 g/dL (2.5-4.5) 01/19/18 04:15 Albumin/Globulin Ratio 0.7 Ratio (1.1-2.1) L 01/19/18 04:15 - Assessment and Plan 1: large soft tissue hematoma Rt hand with edema of the hand . pt has coagulopathy 2ed to several anticoagulants. might lose some of the skin on the dorsum of the Rt hand .. to keep same local care , hand elevation , ATB and debridement if needed - Problem Patient Problems: Patient Problems Cellulitis of hand, right (Acute) L03.113 Hematoma (Acute) T14.8XXA
[2018-01-19] MEDS: XANAX PO SCH (20:38)
[2018-01-19] MEDS: ZOCOR TAB 40 MG PO SCH (20:40)
[2018-01-20] MEDS: ZOSYN VIAL 3.375 GM 3.375 GM in NS 100 ML IV + SPIKE MINIBAG* 100 ML IV SCH (05:43)
[2018-01-20 06:01] LABS: ALBUMIN 2.6 g/dL (3.4-5.0); CALCIUM 8.1 mg/dL (8.5-10.1); CARBON DIOXIDE 26.1 mmol/L (21-32); COR CA(FOR HYPOALB) 9.2 mg/dL (8.5-10.1); CREATININE 1.14 mg/dL (0.55-1.02); TOTAL PROTEIN 6.4 g/dL (6.4-8.2)
[2018-01-20] MEDS: NS 1000 ML 1,000 ML IV SCH (06:01)
[2018-01-20] MEDS: HumuLIN R SUBCUT PRN (06:05)
[2018-01-20 06:18] LABS: BASOPHILS % (AUTO) 0.5 % (0.2-1.0); EOSINOPHILS # (AUTO) 0.6 x10^3/uL (0.0-0.2); EOSINOPHILS % (AUTO) 7.6 % (0.9-2.9); HEMATOCRIT 28.1 % (36.0-47.0); HEMOGLOBIN 9.5 g/dL (12.0-16.0); LYMPHOCYTES # (AUTO) 1.5 X10^3/uL (1.3-2.9); MEAN CORPUSCULAR HEMOGLOBIN 32.8 pg (27.0-34.0); MEAN CORPUSCULAR HGB CONC 33.8 g/dL (33.0-35.0); MEAN CORPUSCULAR VOLUME 97.1 fL (80.0-100.0); MEAN PLATELET VOLUME 7.7 fL (7.4-11.0); MONOCYTES # (AUTO) 0.7 x10^3/uL (0.3-0.8); MONOCYTES % (AUTO) 10.2 % (0.0-13.0); NEUTROPHILS # (AUTO) 4.5 x10^3/uL (2.2-4.8); NEUTROPHILS % (AUTO) 61.7 % (42.0-75.0); PLATELET COUNT 258 X10^3/uL (150.0-450.0); RED CELL DISTRIBUTION WIDTH 14.1 % (11.6-16.5); WHITE BLOOD COUNT 7.3 X10^3/uL (3.6-10.0)
[2018-01-20 08:04] VITALS: BP 187/77
[2018-01-20] MEDS: MICRO K EXTEN CAP 10 MEQ PO SCH (08:36)
[2018-01-20] MEDS: HEMOCYTE-PLUS PO SCH (08:36)
[2018-01-20] MEDS: GLUCOPHAGE XR PO SCH (08:36)
[2018-01-20] MEDS: SYNTHROID 100 mcg TAB PO SCH (08:36)
[2018-01-20] MEDS: ANTIVERT TAB 25 MG PO SCH (08:37)
[2018-01-20] MEDS: NEURONTIN CAP 100 MG PO SCH (08:37)
[2018-01-20] MEDS: ISOSORBIDE MONONITRATE ER PO SCH (08:37)
[2018-01-20] MEDS: PLETAL PO SCH (08:37)
[2018-01-20] MEDS: COMBIGAN EYE DROPS EACHEYE SCH (08:40)
[2018-01-20] MEDS: INSULIN DEGLUDEC 14 UNIT SC SCH (08:47)
--- NOTE | 2018-01-23 11:09 | PCM.PROG ---
Progress Note - Progress Note for Day of Date: 01/18/18 - Subjective Subjective: IS BEING TREATED FOR RIGHT HAND CELLULITIS AND A HEMATOMA FOLLOWING A FALL AT HOME OVER THE WEEKEND. SHE IS STATUS POST I&D OF HEMATOMA TO RIGHT HAND. TODAY, SHE IS ALERT AND ORIENTED, SITTING UP IN BED ON MORNING ROUNDS. RIGHT ARM/HAND IS NOTED TO BE IN A SLING, ELEVATED ON PILLOWS. RIGHT HAND CONTINUES TO BE SWOLLEN AND TENDER TODAY AND NOTED WITH BISTERS TO TOP OF HAND. THERE IS NORMAL CAPILLARY REFILL NOTED TO DIGITS OF RIGHT HAND. NO ACTIVE BLEEDING NOTED FROM SITE. PATIENT ALSO CONTINUES WITH COMPLAINTS OF GENERALIZED WEAKNESS. FAMILY STATES THAT SHE IS UNSTADY ON AMBULATION. HER VITALS THIS MORNING ARE 97.4-63-20-96%-133/60. LABS WERE OBTAINED. ABNORMAL LAB VALUES INCLUDE THE FOLLOWING: RBC 3.15, HGB 10.2, HCT 31.1, BUN 28, CREATININE 1.36, GFR 39, GLUCOSE 310, CALCIUM 8.2, AST 12, ALBUMIN 2.8. BLOOD CULTURES AND WOUND CULTURES ARE PENDING. TODAY, WE WILL CONSULT WITH PHYSICAL THERAPY TO EVAULATE PATIENT. WE WILL CONTINUE WITH IV ANTIBIOTICS AND WOUND CARE PER INSTRUCTIONS. WE PLAN TO FOLLOW UP WITH AM LABS AND CONTINUE TO MONITOR PATIENT FOR VASCULAR COMPROMISE OR COMPARTMENT SYNDROME. - Past Medical Family Social History Past Med/Fam/Surg Hx: No changes since H&P Allergies: Allergies gatifloxacin [From Tequin] Allergy (Verified 01/14/18 11:07) sulfamethoxazole [From Septra] Allergy (Verified 01/14/18 11:07) trimethoprim [From Septra] Allergy (Verified 01/14/18 11:07) - Review of Systems ROS: No change since H&P - Vital Signs and I&O's Vital Signs: Temperature 97.9 F Pulse Rate [Left Brachial] 68 Respiratory Rate 18 Blood Pressure [Left Arm] 187/77 Blood Pressure 127/71 O2 Sat by Pulse Oximetry 97 Intake and Output: Intake & Output 01/20/18 01/21/18 01/22/18 01/23/18 11:59 11:59 11:59 11:59 Intake Total 2025 Balance 2025 - Physical Exam Oriented: Normal Eyes: Normal Ear: Normal Nose: Normal Throat: Normal Respiratory: Normal Cardiovascular: Normal : Normal Auscultation: Bowel Sounds: Normal Palpation: Normal Tenderness: Normal Skin: Wound (RIGHT HAND still SWOLLEN, the skin is not as tight but dusky looking . ,fingers are warm with good blood supply ..radial pulse is srtong..) Musculoskeletal: Right, Hand (deep soft tissue hematoma with large area of ecchymosis involving the Rt hand with blisters .no expanding hematoma , and pt is having good ROM of all of the gingers . has good radial pulse) Psychiatric: Normal Mood Description: Calm Affect: Normal Speech Pattern: Clear, Appropriate - Laboratory and Diagnostics Result Diagrams: 01/20/18 04:55 01/20/18 04:55 Labs: 01/16/18 17:55 Blood Blood Culture - Final 01/16/18 17:45 Blood Blood Culture - Final 01/16/18 17:58 Hand - Right Gram Stain - Final 01/16/18 17:58 Hand - Right Wound Culture - Final Laboratory WBC 7.3 X10^3/uL (3.6-10.0) 01/20/18 04:55 RBC 2.90 X10^6/uL (3.5-5.4) L 01/20/18 04:55 Hgb 9.5 g/dL (12.0-16.0) L 01/20/18 04:55 Hct 28.1 % (36.0-47.0) L 01/20/18 04:55 MCV 97.1 fL (80.0-100.0) 01/20/18 04:55 MCH 32.8 pg (27.0-34.0) 01/20/18 04:55 MCHC 33.8 g/dL (33.0-35.0) 01/20/18 04:55 RDW 14.1 % (11.6-16.5) 01/20/18 04:55 Plt Count 258 X10^3/uL (150.0-450.0) 01/20/18 04:55 MPV 7.7 fL (7.4-11.0) 01/20/18 04:55 Neut % 61.7 % (42.0-75.0) 01/20/18 04:55 Lymph % 20.0 % (21.0-51.0) L 01/20/18 04:55 [place] % 10.2 % (0.0-13.0) 01/20/18 04:55 Eos % 7.6 % (0.9-2.9) H 01/20/18 04:55 Baso % 0.5 % (0.2-1.0) 01/20/18 04:55 Neut # 4.5 x10^3/uL (2.2-4.8) 01/20/18 04:55 Lymph # 1.5 X10^3/uL (1.3-2.9) 01/20/18 04:55 [place] # 0.7 x10^3/uL (0.3-0.8) 01/20/18 04:55 Eos # 0.6 x10^3/uL (0.0-0.2) H 01/20/18 04:55 Baso # 0.0 X10^3/uL (0.0-0.1) 01/20/18 04:55 Absolute Nucleated RBC 0.1 /100WBC 01/20/18 04:55 Sodium 139 mmol/L (136-145) 01/20/18 04:55 Corrected Sodium 143 mmol/L (136-145) 01/20/18 04:55 Potassium 4.0 mmol/L (3.5-5.1) 01/20/18 04:55 Chloride 105 mmol/L (98-107) 01/20/18 04:55 Carbon Dioxide 26.1 mmol/L (21-32) 01/20/18 04:55 BUN 26 mg/dL (7-18) H 01/20/18 04:55 Creatinine 1.14 mg/dL (0.55-1.02) H 01/20/18 04:55 Est GFR (MDRD) Af Amer 58 (>60) L 01/20/18 04:55 Est GFR (MDRD) Non-Af 48 (>60) L 01/20/18 04:55 Glucose 277 mg/dL (65-99) H 01/20/18 04:55 POC Glucose (mg/dL) 265 mg/dL (65-99) H 01/20/18 05:45 Calcium 8.1 mg/dL (8.5-10.1) L 01/20/18 04:55 Corrected Calcium 9.2 mg/dL (8.5-10.1) 01/20/18 04:55 Total Bilirubin 0.40 mg/dL (0.2-1.0) 01/20/18 04:55 AST 14 Units/L (15-37) L 01/20/18 04:55 ALT 13 Units/L (12-78) 01/20/18 04:55 Alkaline Phosphatase 48 Units/L (46-116) 01/20/18 04:55 Total Protein 6.4 g/dL (6.4-8.2) 01/20/18 04:55 Albumin 2.6 g/dL (3.4-5.0) L 01/20/18 04:55 Globulin 3.8 g/dL (2.5-4.5) 01/20/18 04:55 Albumin/Globulin Ratio 0.7 Ratio (1.1-2.1) L 01/20/18 04:55 - Plan (1) Cellulitis of hand, right Status: Acute Plan: IV ANTIBIOTICS, WOUND CARE, CONTINUE TO MONTIOR (2) Hematoma Status: Acute Plan: IV ANTIBIOTICS, WOUND CARE, CONTINUE TO MONTIOR (3) Generalized weakness Status: Acute Plan: PT CONSULT, GLUCERNA, CONTINUE TO MONITOR
--- NOTE | 2018-01-23 11:20 | PCM.PROG ---
Progress Note - Progress Note for Day of Date: 01/19/18 - Subjective Subjective: IS BEING TREATED FOR RIGHT HAND CELLULITIS AND A HEMATOMA FOLLOWING A FALL AT HOME OVER THE WEEKEND. SHE IS STATUS POST I&D OF HEMATOMA TO RIGHT HAND. TODAY, SHE IS ALERT AND ORIENTED, SITTING UP IN BED ON MORNING ROUNDS. RIGHT ARM/HAND REMAINS IN A SLING AND IS ELEVATED ON PILLOWS. SWELLING APPEARS TO HAVE DECREASED SINCE YESTERDAY, BUT REMAINS WITH BRUISING AND DISCOLORATION. SHE IS ABLE TO MOVE FINGERS MORE FREELY THAN SHE COULD YESTERDAY. THERE IS NORMAL CAPILLARY REFILL NOTED TO DIGITS OF RIGHT HAND. NO ACTIVE BLEEDING NOTED FROM SITE. PATIENT ALSO CONTINUES WITH COMPLAINTS OF GENERALIZED WEAKNESS. FAMILY STATES THAT SHE IS UNSTADY ON AMBULATION. HER VITALS THIS MORNING ARE 97.7-81-18-92%-181/72. LABS WERE OBTAINED. ABNORMAL LAB VALUES INCLUDE THE FOLLOWING: RBC 3.10, HGB 10.1, HCT 30.7, CARBON DIOXIDE 20.8 , BUN 32, CREATININE 1.38, GLUCOSE 391, CALCIUM 8.4, AST 13, ALBUMIN 2.8. BLOOD CULTURES AND WOUND CULTURES REPORT NO GROWTH. PHYSICAL THERAPY EVALUATED PATIENT AND RECOMMEND SKILLED THERAPY DUE TO UNSTEADY GAIT AND WEAKNESS. WE WILL CONTINUE WITH IV ANTIBIOTICS AND WOUND CARE PER INSTRUCTIONS. WE PLAN TO FOLLOW UP WITH AM LABS AND CONTINUE TO MONITOR PATIENT. - Past Medical Family Social History Past Med/Fam/Surg Hx: No changes since H&P Allergies: Allergies gatifloxacin [From Tequin] Allergy (Verified 01/14/18 11:07) sulfamethoxazole [From Septra] Allergy (Verified 01/14/18 11:07) trimethoprim [From Septra] Allergy (Verified 01/14/18 11:07) - Review of Systems ROS: No change since H&P - Vital Signs and I&O's Vital Signs: Temperature 97.9 F Pulse Rate [Left Brachial] 68 Respiratory Rate 18 Blood Pressure [Left Arm] 187/77 Blood Pressure 127/71 O2 Sat by Pulse Oximetry 97 Intake and Output: Intake & Output 01/20/18 01/21/18 01/22/18 01/23/18 11:59 11:59 11:59 11:59 Intake Total 2025 Balance 2025 - Physical Exam Oriented: Normal Eyes: Normal Ear: Normal Nose: Normal Throat: Normal Respiratory: Normal Cardiovascular: Normal : Normal Auscultation: Bowel Sounds: Normal Palpation: Normal Tenderness: Normal Skin: Wound (RIGHT HAND still SWOLLEN, the skin is not as tight but dusky looking . ,fingers are warm with good blood supply ..radial pulse is srtong..) Musculoskeletal: Right, Hand (deep soft tissue hematoma with large area of ecchymosis involving the Rt hand with blisters .no expanding hematoma , and pt is having good ROM of all of the gingers . has good radial pulse) Psychiatric: Normal Mood Description: Calm Affect: Normal Speech Pattern: Clear, Appropriate - Laboratory and Diagnostics Result Diagrams: 01/20/18 04:55 01/20/18 04:55 Labs: 01/16/18 17:55 Blood Blood Culture - Final 01/16/18 17:45 Blood Blood Culture - Final 01/16/18 17:58 Hand - Right Gram Stain - Final 01/16/18 17:58 Hand - Right Wound Culture - Final Laboratory WBC 7.3 X10^3/uL (3.6-10.0) 01/20/18 04:55 RBC 2.90 X10^6/uL (3.5-5.4) L 01/20/18 04:55 Hgb 9.5 g/dL (12.0-16.0) L 01/20/18 04:55 Hct 28.1 % (36.0-47.0) L 01/20/18 04:55 MCV 97.1 fL (80.0-100.0) 01/20/18 04:55 MCH 32.8 pg (27.0-34.0) 01/20/18 04:55 MCHC 33.8 g/dL (33.0-35.0) 01/20/18 04:55 RDW 14.1 % (11.6-16.5) 01/20/18 04:55 Plt Count 258 X10^3/uL (150.0-450.0) 01/20/18 04:55 MPV 7.7 fL (7.4-11.0) 01/20/18 04:55 Neut % 61.7 % (42.0-75.0) 01/20/18 04:55 Lymph % 20.0 % (21.0-51.0) L 01/20/18 04:55 [place] % 10.2 % (0.0-13.0) 01/20/18 04:55 Eos % 7.6 % (0.9-2.9) H 01/20/18 04:55 Baso % 0.5 % (0.2-1.0) 01/20/18 04:55 Neut # 4.5 x10^3/uL (2.2-4.8) 01/20/18 04:55 Lymph # 1.5 X10^3/uL (1.3-2.9) 01/20/18 04:55 [place] # 0.7 x10^3/uL (0.3-0.8) 01/20/18 04:55 Eos # 0.6 x10^3/uL (0.0-0.2) H 01/20/18 04:55 Baso # 0.0 X10^3/uL (0.0-0.1) 01/20/18 04:55 Absolute Nucleated RBC 0.1 /100WBC 01/20/18 04:55 Sodium 139 mmol/L (136-145) 01/20/18 04:55 Corrected Sodium 143 mmol/L (136-145) 01/20/18 04:55 Potassium 4.0 mmol/L (3.5-5.1) 01/20/18 04:55 Chloride 105 mmol/L (98-107) 01/20/18 04:55 Carbon Dioxide 26.1 mmol/L (21-32) 01/20/18 04:55 BUN 26 mg/dL (7-18) H 01/20/18 04:55 Creatinine 1.14 mg/dL (0.55-1.02) H 01/20/18 04:55 Est GFR (MDRD) Af Amer 58 (>60) L 01/20/18 04:55 Est GFR (MDRD) Non-Af 48 (>60) L 01/20/18 04:55 Glucose 277 mg/dL (65-99) H 01/20/18 04:55 POC Glucose (mg/dL) 265 mg/dL (65-99) H 01/20/18 05:45 Calcium 8.1 mg/dL (8.5-10.1) L 01/20/18 04:55 Corrected Calcium 9.2 mg/dL (8.5-10.1) 01/20/18 04:55 Total Bilirubin 0.40 mg/dL (0.2-1.0) 01/20/18 04:55 AST 14 Units/L (15-37) L 01/20/18 04:55 ALT 13 Units/L (12-78) 01/20/18 04:55 Alkaline Phosphatase 48 Units/L (46-116) 01/20/18 04:55 Total Protein 6.4 g/dL (6.4-8.2) 01/20/18 04:55 Albumin 2.6 g/dL (3.4-5.0) L 01/20/18 04:55 Globulin 3.8 g/dL (2.5-4.5) 01/20/18 04:55 Albumin/Globulin Ratio 0.7 Ratio (1.1-2.1) L 01/20/18 04:55 - Plan (1) Cellulitis of hand, right Status: Acute Plan: IV ANTIBIOTICS, WOUND CARE, CONTINUE TO MONTIOR (2) Hematoma Status: Acute Plan: IV ANTIBIOTICS, WOUND CARE, CONTINUE TO MONTIOR (3) Generalized weakness Status: Acute Plan: PHYSICAL THERAPY, GLUCERNA, CONTINUE TO MONITOR
== END 2018-01-20 11:06 | disposition swing bed (61) | DRG 603 ==
LOC: MED/SURG 16:32
PROVIDERS: ADMIT Internal Medicine; ATTEND Internal Medicine
PROC: 0X9J3ZX Drainage of Right Hand, Percutaneous Approach, Diagnostic (ICD-10-PCS; principal; 2018-01-16)
DX: L03.113 Cellulitis of right upper limb (principal); S60.221A Contusion of right hand, initial encounter; W18.39XA Other fall on same level, initial encounter; Z86.73 Personal history of transient ischemic attack (TIA), and cerebral infarction without residual deficits; E03.8 Other specified hypothyroidism; I10 Essential (primary) hypertension; R53.1 Weakness; E78.2 Mixed hyperlipidemia; Z79.1 Long term (current) use of non-steroidal anti-inflammatories (NSAID); R26.81 Unsteadiness on feet
CPT/HCPCS: 36415; 80053; 85025; 87040; 87070; 87075; 87205; A4216; A4222; J1815; J2543

== ENCOUNTER 2018-01-20 11:06 | Inpatient (IN) | payer OTHER ==
[2018-01-20] MEDS ORDERED: NS 1000 ML 1,000 ML ONE (12:51)
[2018-01-20] MEDS: XARELTO PO SCH (15:37)
[2018-01-20] MEDS: AUGMENTIN 500 MG/125 MG TAB PO SCH ×2 (15:37→20:50)
[2018-01-20] MEDS: ASPIRIN PO SCH (15:37)
[2018-01-20] MEDS: MICRO K EXTEN CAP 10 MEQ PO SCH (20:49)
[2018-01-20] MEDS: NEURONTIN CAP 100 MG PO SCH (20:50)
[2018-01-20] MEDS: ZOCOR TAB 40 MG PO SCH (20:50)
[2018-01-20] MEDS: ANTIVERT TAB 25 MG PO SCH (20:50)
[2018-01-20] MEDS: XANAX PO SCH (20:50)
[2018-01-20] MEDS: COMBIGAN EYE DROPS EACHEYE SCH (20:51)
[2018-01-20] MEDS: GLUCOPHAGE XR PO SCH (20:51)
[2018-01-21] MEDS: HumuLIN R SUBCUT PRN (05:38)
[2018-01-21] MEDS: SYNTHROID 100 mcg TAB PO SCH (08:24)
[2018-01-21] MEDS: NEURONTIN CAP 100 MG PO SCH ×2 (08:25→21:09)
[2018-01-21] MEDS: AUGMENTIN 500 MG/125 MG TAB PO SCH ×2 (08:25→21:09)
[2018-01-21] MEDS: ANTIVERT TAB 25 MG PO SCH ×2 (08:25→21:08)
[2018-01-21] MEDS: ASPIRIN PO SCH (08:25)
[2018-01-21] MEDS: XARELTO PO SCH (08:25)
[2018-01-21] MEDS: HEMOCYTE-PLUS PO SCH (08:25)
[2018-01-21] MEDS: GLUCOPHAGE XR PO SCH ×2 (08:26→21:09)
[2018-01-21] MEDS: ISOSORBIDE MONONITRATE ER PO SCH (08:26)
[2018-01-21] MEDS: COMBIGAN EYE DROPS EACHEYE SCH ×2 (08:26→21:12)
[2018-01-21] MEDS: PLETAL PO SCH (08:26)
[2018-01-21] MEDS: MICRO K EXTEN CAP 10 MEQ PO SCH ×2 (08:26→21:08)
[2018-01-21] MEDS: NEOSPORIN OINT TOP SCH (08:27)
[2018-01-21] MEDS: INSULIN DEGLUDEC 14 UNIT SC SCH (08:27)
--- NOTE | 2018-01-21 10:48 | DR.PROGNOT ---
Hospital Progress Notes - Progress Note for Day of: Progress Note Date: 01/21/18 - Chief Complaint Chief Complaint: slow improvement of the hand hematoma . mild bloody drainage Rt merrick incision . - Past Medical Family Social History Allergies: Allergies gatifloxacin [From Tequin] Allergy (Verified 01/14/18 11:07) sulfamethoxazole [From Septra] Allergy (Verified 01/14/18 11:07) trimethoprim [From Septra] Allergy (Verified 01/14/18 11:07) - Vital Signs Vital Signs: Temperature 98 F Pulse Rate [Right Brachial] 70 Respiratory Rate 20 Blood Pressure [Left Arm] 170/87 Blood Pressure 187/77 O2 Sat by Pulse Oximetry 98 - Physical Exam Oriented: Normal (pt is alert and cooperative ) GI:Auscultation: Normal Musculoskeletal: Right, Hand (3 x 3 cm ischar on the dorsal aspect, no active infection ,, mild limitation of ROM of the fingers because of pain and swelling .pulses are palpable) Speech Pattern: Clear, Appropriate - Laboratory and Diagnostics Labs: Laboratory POC Glucose (mg/dL) 293 mg/dL (65-99) H 01/21/18 05:11 - Assessment and Plan 1: trauma to Rt hand with large soft tissue hematoma. large devitalized skin on the dorsal aspect . for debridement in the OR on tuesday.. same IV ATB and local care
[2018-01-21 12:54] VITALS: BMI 24.1
[2018-01-21] MEDS: ZOCOR TAB 40 MG PO SCH (21:09)
[2018-01-21] MEDS: XANAX PO SCH (21:09)
[2018-01-22] MEDS: ASPIRIN PO SCH (08:20)
[2018-01-22] MEDS: ANTIVERT TAB 25 MG PO SCH ×2 (08:20→21:31)
[2018-01-22] MEDS: NEURONTIN CAP 100 MG PO SCH ×2 (08:21→21:32)
[2018-01-22] MEDS: MICRO K EXTEN CAP 10 MEQ PO SCH ×2 (08:21→21:31)
[2018-01-22] MEDS: PLETAL PO SCH (08:22)
[2018-01-22] MEDS: HEMOCYTE-PLUS PO SCH (08:23)
[2018-01-22] MEDS: GLUCOPHAGE XR PO SCH ×2 (08:23→21:33)
[2018-01-22] MEDS: SYNTHROID 100 mcg TAB PO SCH (08:23)
[2018-01-22] MEDS: AUGMENTIN 500 MG/125 MG TAB PO SCH ×2 (08:23→21:34)
[2018-01-22] MEDS: XARELTO PO SCH (08:24)
[2018-01-22] MEDS: ISOSORBIDE MONONITRATE ER PO SCH (08:24)
[2018-01-22] MEDS: INSULIN DEGLUDEC 14 UNIT SC SCH (08:26)
[2018-01-22] MEDS: COMBIGAN EYE DROPS EACHEYE SCH ×2 (08:31→21:43)
[2018-01-22] MEDS: NEOSPORIN OINT TOP SCH (08:31)
[2018-01-22] MEDS ORDERED: HYDROGEN PEROXIDE 3% ONE (08:50)
--- NOTE | 2018-01-22 09:51 | DR.PROGNOT ---
Hospital Progress Notes - Progress Note for Day of: Progress Note Date: 01/22/18 - Chief Complaint Chief Complaint: slow improvement of the hand hematoma . mild bloody drainage Rt hand incision . able to flex all fingers with some limitation because of the swelling - Past Medical Family Social History Past Med/Fam/Surg Hx: No changes since H&P Allergies: Allergies gatifloxacin [From Tequin] Allergy (Verified 01/14/18 11:07) sulfamethoxazole [From Septra] Allergy (Verified 01/14/18 11:07) trimethoprim [From Septra] Allergy (Verified 01/14/18 11:07) - Vital Signs Vital Signs: Temperature 98.6 F Pulse Rate [Right Brachial] 81 Respiratory Rate 22 Blood Pressure [Left Arm] 175/84 Blood Pressure 187/77 O2 Sat by Pulse Oximetry 95 - Physical Exam Oriented: Normal (pt is alert and cooperative ) Eyes: Normal Ear: Normal Nose: Normal GI:Auscultation: Normal GI:Palpation: Normal Musculoskeletal: Hand (3 x 3 cm ischar on the dorsal aspect, no active infection ,, mild limitation of ROM of the fingers because of pain and swelling .pulses are palpable. ) Speech Pattern: Clear, Appropriate - Laboratory and Diagnostics Labs: Laboratory POC Glucose (mg/dL) 295 mg/dL (65-99) H 01/22/18 06:07 - Assessment and Plan 1: trauma to Rt hand with large soft tissue hematoma. large devitalized skin on the dorsal aspect . for debridement in the OR on tuesday.. same IV ATB and local care
[2018-01-22] MEDS: HumuLIN R SUBCUT PRN ×2 (11:51→17:12)
[2018-01-22] MEDS: ZOCOR TAB 40 MG PO SCH (21:33)
[2018-01-22] MEDS: XANAX PO SCH (21:33)
[2018-01-23 05:27] LABS: BASOPHILS % (AUTO) 0.6 % (0.2-1.0); EOSINOPHILS # (AUTO) 0.7 x10^3/uL (0.0-0.2); EOSINOPHILS % (AUTO) 8.4 % (0.9-2.9); HEMATOCRIT 27.6 % (36.0-47.0); HEMOGLOBIN 9.5 g/dL (12.0-16.0); LYMPHOCYTES # (AUTO) 1.3 X10^3/uL (1.3-2.9); LYMPHOCYTES % (AUTO) 17.1 % (21.0-51.0); MEAN CORPUSCULAR HGB CONC 34.3 g/dL (33.0-35.0); MEAN CORPUSCULAR VOLUME 96.1 fL (80.0-100.0); MEAN PLATELET VOLUME 7.4 fL (7.4-11.0); MONOCYTES # (AUTO) 0.8 x10^3/uL (0.3-0.8); NEUTROPHILS % (AUTO) 63.9 % (42.0-75.0); PLATELET COUNT 297 X10^3/uL (150.0-450.0); RED BLOOD COUNT 2.87 X10^6/uL (3.5-5.4); RED CELL DISTRIBUTION WIDTH 13.7 % (11.6-16.5); WHITE BLOOD COUNT 7.8 X10^3/uL (3.6-10.0)
[2018-01-23 05:51] LABS: ALANINE AMINOTRANSFERASE 14 Units/L (12-78); ALBUMIN 2.5 g/dL (3.4-5.0); ALKALINE PHOSPHATASE 57 Units/L (46-116); ASPARTATE AMINO TRANSFERASE 14 Units/L (15-37); BLOOD UREA NITROGEN 15 mg/dL (7-18); CALCIUM 8.4 mg/dL (8.5-10.1); CARBON DIOXIDE 25.9 mmol/L (21-32); CHLORIDE 103 mmol/L (98-107); COR CA(FOR HYPOALB) 9.6 mg/dL (8.5-10.1); COR NA(FOR HYPERGLY) 140 mmol/L (136-145); CREATININE 1.03 mg/dL (0.55-1.02); SODIUM 136 mmol/L (136-145); TOTAL PROTEIN 6.9 g/dL (6.4-8.2); eGFR BLACK RACES > 60 (>60); eGFR NON BLACK RACES 54 (>60)
[2018-01-23] MEDS: MICRO K EXTEN CAP 10 MEQ PO SCH ×2 (09:00→20:48)
[2018-01-23] MEDS: AUGMENTIN 500 MG/125 MG TAB PO SCH ×2 (09:00→20:47)
[2018-01-23] MEDS: ASPIRIN PO SCH ×2 (09:00→09:25)
[2018-01-23] MEDS: XARELTO PO SCH ×2 (09:01→09:26)
[2018-01-23] MEDS: ANTIVERT TAB 25 MG PO SCH ×2 (09:01→20:47)
[2018-01-23] MEDS: ISOSORBIDE MONONITRATE ER PO SCH (09:01)
[2018-01-23] MEDS: HEMOCYTE-PLUS PO SCH (09:01)
[2018-01-23] MEDS: NEOSPORIN OINT TOP SCH (09:02)
[2018-01-23] MEDS: GLUCOPHAGE XR PO SCH ×2 (09:02→20:48)
[2018-01-23] MEDS: NEURONTIN CAP 100 MG PO SCH ×2 (09:02→20:49)
[2018-01-23] MEDS: PLETAL PO SCH ×2 (09:02→09:25)
[2018-01-23] MEDS: SYNTHROID 100 mcg TAB PO SCH (09:02)
[2018-01-23] MEDS: INSULIN DEGLUDEC 14 UNIT SC SCH (09:03)
[2018-01-23] MEDS: COMBIGAN EYE DROPS EACHEYE SCH ×2 (09:07→20:48)
[2018-01-23] MEDS ORDERED: DIPRIVAN VIAL ONE (09:28)
[2018-01-23] MEDS ORDERED: VERSED ONE (09:28)
[2018-01-23] MEDS ORDERED: MILK OF MAGNESIA PO PRN (09:33)
[2018-01-23] MEDS ORDERED: COLACE CAP 100 MG PO PRN (09:33)
--- NOTE | 2018-01-23 11:46 | PCM.PROG ---
Progress Note - Progress Note for Day of Date: 01/23/18 - Subjective Subjective: IS SWINGBED STATUS FOR PHYSICAL THERAPY DUE TO UNSTEADY GAIT AND GENERALIZED WEAKNESS. SHE IS CURRENTLY BEING TREATED FOR RIGHT HAND CELLULITIS AND A HEMATOMA FOLLOWING A FALL AT HOME OVER THE WEEKEND. SHE IS STATUS POST I&D OF HEMATOMA TO RIGHT HAND. TODAY, SHE IS ALERT AND ORIENTED, SITTING UP IN BED ON MORNING ROUNDS. RIGHT ARM/HAND REMAINS IN A SLING AND IS ELEVATED ON PILLOWS. SWELLING AND DISCOLORATION REMAIN TO THE RIGHT HAND. MOVEMENT OF FINGERS IS LIMITED DUE TO SWELLING. A LARGE SOFT TISSUE HEMATOMA IS PRESENT. HER VITALS THIS MORNING ARE 98.5-70-20-97%-179/72. LABS WERE OBTAINED. ABNORMAL LAB VALUES INCLUDE THE FOLLOWING: RBC 2.87, HGB 9.5, HCT 27.6, CREATININE 1.03, GLUCOSE 252, CALCIUM 8.4, AST 14, ALBUMIN 2.5. PATIENT CONTINUES TO BE COOPERATIVE WITH PHYSICAL THERAPY AND IS AMBULATING WITH ASSISTANCE. SAW PATIENT TODAY AND PLANS TO TAKE PATIENT TO THE OR TODAY FOR DEBRIDEMENT. WE WILL CONTINUE WITH IV ANTIBIOTICS AND WOUND CARE PER INSTRUCTIONS. WE PLAN TO FOLLOW UP WITH AM LABS AND CONTINUE TO MONITOR PATIENT. - Past Medical Family Social History Past Med/Fam/Surg Hx: No changes since H&P Allergies: Allergies gatifloxacin [From Tequin] Allergy (Verified 01/14/18 11:07) sulfamethoxazole [From Septra] Allergy (Verified 01/14/18 11:07) trimethoprim [From Septra] Allergy (Verified 01/14/18 11:07) - Review of Systems ROS: No change since H&P - Vital Signs and I&O's Vital Signs: Temperature 97.9 F Pulse Rate [Left Brachial] 71 Pulse Rate [Right Brachial] 66 Respiratory Rate 20 Blood Pressure [Left Arm] 182/81 Blood Pressure 187/77 O2 Sat by Pulse Oximetry 96 Intake and Output: Intake & Output 01/20/18 01/21/18 01/22/18 01/23/18 11:59 11:59 11:59 11:59 Intake Total 1812 730 760 Output Total 0 Balance 1812 730 760 - Physical Exam Oriented: Normal (pt is alert and cooperative ) Eyes: Normal Ear: Normal Nose: Normal Throat: Normal Respiratory: Normal Cardiovascular: Edema (RIGHT HAND ) : Normal Auscultation: Bowel Sounds: Normal Palpation: Normal Tenderness: Normal Skin: Wound (RIGHT HAND SOFT TISSUE HEMATOMA) Musculoskeletal: Hand (3 x 3 cm ischar on the dorsal aspect, no active infection ,, mild limitation of ROM of the fingers because of pain and swelling .pulses are palpable. ) Psychiatric: Normal Mood Description: Calm Affect: Normal Speech Pattern: Clear, Appropriate - Laboratory and Diagnostics Result Diagrams: 01/23/18 04:05 01/23/18 04:05 Labs: Laboratory WBC 7.8 X10^3/uL (3.6-10.0) 01/23/18 04:05 RBC 2.87 X10^6/uL (3.5-5.4) L 01/23/18 04:05 Hgb 9.5 g/dL (12.0-16.0) L 01/23/18 04:05 Hct 27.6 % (36.0-47.0) L 01/23/18 04:05 MCV 96.1 fL (80.0-100.0) 01/23/18 04:05 MCH 33.0 pg (27.0-34.0) 01/23/18 04:05 MCHC 34.3 g/dL (33.0-35.0) 01/23/18 04:05 RDW 13.7 % (11.6-16.5) 01/23/18 04:05 Plt Count 297 X10^3/uL (150.0-450.0) 01/23/18 04:05 MPV 7.4 fL (7.4-11.0) 01/23/18 04:05 Neut % 63.9 % (42.0-75.0) 01/23/18 04:05 Lymph % 17.1 % (21.0-51.0) L 01/23/18 04:05 [place] % 10.0 % (0.0-13.0) 01/23/18 04:05 Eos % 8.4 % (0.9-2.9) H 01/23/18 04:05 Baso % 0.6 % (0.2-1.0) 01/23/18 04:05 Neut # 5.0 x10^3/uL (2.2-4.8) H 01/23/18 04:05 Lymph # 1.3 X10^3/uL (1.3-2.9) 01/23/18 04:05 [place] # 0.8 x10^3/uL (0.3-0.8) 01/23/18 04:05 Eos # 0.7 x10^3/uL (0.0-0.2) H 01/23/18 04:05 Baso # 0.0 X10^3/uL (0.0-0.1) 01/23/18 04:05 Absolute Nucleated RBC 0.0 /100WBC 01/23/18 04:05 Sodium 136 mmol/L (136-145) 01/23/18 04:05 Corrected Sodium 140 mmol/L (136-145) 01/23/18 04:05 Potassium 4.4 mmol/L (3.5-5.1) 01/23/18 04:05 Chloride 103 mmol/L (98-107) 01/23/18 04:05 Carbon Dioxide 25.9 mmol/L (21-32) 01/23/18 04:05 BUN 15 mg/dL (7-18) 01/23/18 04:05 Creatinine 1.03 mg/dL (0.55-1.02) H 01/23/18 04:05 Est GFR (MDRD) Af Amer > 60 (>60) 01/23/18 04:05 Est GFR (MDRD) Non-Af 54 (>60) L 01/23/18 04:05 Glucose 252 mg/dL (65-99) H 01/23/18 04:05 POC Glucose (mg/dL) 279 mg/dL (65-99) H 01/23/18 11:14 Calcium 8.4 mg/dL (8.5-10.1) L 01/23/18 04:05 Corrected Calcium 9.6 mg/dL (8.5-10.1) 01/23/18 04:05 Total Bilirubin 0.30 mg/dL (0.2-1.0) 01/23/18 04:05 AST 14 Units/L (15-37) L 01/23/18 04:05 ALT 14 Units/L (12-78) 01/23/18 04:05 Alkaline Phosphatase 57 Units/L (46-116) 01/23/18 04:05 Total Protein 6.9 g/dL (6.4-8.2) 01/23/18 04:05 Albumin 2.5 g/dL (3.4-5.0) L 01/23/18 04:05 Globulin 4.4 g/dL (2.5-4.5) 01/23/18 04:05 Albumin/Globulin Ratio 0.6 Ratio (1.1-2.1) L 01/23/18 04:05 - Plan (1) Cellulitis of hand, right Status: Acute Plan: CONTINUE AUGMENTIN, CONTINUE WOUND CARE (2) Traumatic hematoma of right hand Status: Acute Qualifiers: Encounter type: initial encounter Qualified Code(s): S60.221A - Contusion of right hand, initial encounter Plan: CONTINUE AUGMENTIN, CONTINUE WOUND CARE, DEBRIDEMENT BY , CONTINUE TO MONITOR (3) Unsteady gait Status: Acute Plan: CONTINUE PHYSICAL THERAPY, CONTINUE TO MONITOR
[2018-01-23] MEDS: HumuLIN R SUBCUT PRN (12:05)
[2018-01-23] MEDS ORDERED: LR 1000 ML IV 1,000 ML IV ONE (14:13)
[2018-01-23] MEDS ORDERED: NS 100 ML IV 100 ML IV ONE (14:19)
[2018-01-23] MEDS ORDERED: BACITRACIN VIAL ONE (14:22)
[2018-01-23] MEDS: VANCOMYCIN HCL 1 GM VIAL ONE ×2 (14:28→15:20)
[2018-01-23] MEDS ORDERED: NS IRRIGATION 1000 ML 1,000 ML with BACITRACIN VIAL 50,000 UNT IR ONE ×2 (15:10)
[2018-01-23] MEDS ORDERED: HYDROGEN PEROXIDE 3% ONE (15:12)
[2018-01-23] MEDS ORDERED: HYDROGEN PEROXIDE 3% EXT ONE (15:17)
[2018-01-23] MEDS ORDERED: DILAUDID INJ IVP PRN (15:51)
[2018-01-23] MEDS: COLACE CAP 100 MG PO SCH (20:48)
[2018-01-23] MEDS: MILK OF MAGNESIA PO SCH ×2 (20:49→22:29)
[2018-01-23] MEDS: XANAX PO SCH ×2 (20:50→22:28)
[2018-01-23] MEDS: ZOCOR TAB 40 MG PO SCH (20:50)
--- NOTE | 2018-01-23 21:30 | OR.GENERIC ---
Post-Op Note Generic - Post-Op Note Operative Report: PO note under sedation the Rt hand was examined . there was large hematoma on the dorsal aspect of the hand causing skin necrosis which had to be debrided , the hematoma was enacuated as much as possible .. flexor tendons were exposed . irrigation and packing was done ., cultures were taken . to continue local care , moist dressings ATB and future skin coverage
[2018-01-24] MEDS: NEURONTIN CAP 100 MG PO SCH ×2 (08:30→20:09)
[2018-01-24] MEDS: MILK OF MAGNESIA PO SCH ×2 (08:30→22:05)
[2018-01-24] MEDS: AUGMENTIN 500 MG/125 MG TAB PO SCH ×2 (08:30→20:09)
[2018-01-24] MEDS: SYNTHROID 100 mcg TAB PO SCH (08:31)
[2018-01-24] MEDS: ASPIRIN PO SCH (08:31)
[2018-01-24] MEDS: PLETAL PO SCH (08:32)
[2018-01-24] MEDS: HEMOCYTE-PLUS PO SCH (08:32)
[2018-01-24] MEDS: GLUCOPHAGE XR PO SCH ×2 (08:32→20:07)
[2018-01-24] MEDS: COLACE CAP 100 MG PO SCH ×2 (08:32→20:10)
[2018-01-24] MEDS: ANTIVERT TAB 25 MG PO SCH ×2 (08:33→20:08)
[2018-01-24] MEDS: MICRO K EXTEN CAP 10 MEQ PO SCH ×2 (08:33→20:06)
[2018-01-24] MEDS: ISOSORBIDE MONONITRATE ER PO SCH (08:35)
[2018-01-24] MEDS: INSULIN DEGLUDEC 14 UNIT SC SCH (08:35)
[2018-01-24] MEDS: XARELTO PO SCH (08:35)
[2018-01-24] MEDS: COMBIGAN EYE DROPS EACHEYE SCH ×2 (08:53→20:09)
[2018-01-24] MEDS: NEOSPORIN OINT TOP SCH (08:53)
[2018-01-24] MEDS: HumuLIN R SUBCUT PRN ×3 (13:32→20:13)
--- NOTE | 2018-01-24 14:39 | DR.PROGNOT ---
Hospital Progress Notes - Progress Note for Day of: Progress Note Date: 01/24/18 - Chief Complaint Chief Complaint: improvement of the hand swelling. mild bloody drainage Rt hand incision . able to flex all fingers with some limitation because of the swelling. no necrosis or active infection - Past Medical Family Social History Past Med/Fam/Surg Hx: No changes since H&P Allergies: Allergies gatifloxacin [From Tequin] Allergy (Verified 01/14/18 11:07) sulfamethoxazole [From Septra] Allergy (Verified 01/14/18 11:07) trimethoprim [From Septra] Allergy (Verified 01/14/18 11:07) - Review Of Systems ROS: No change since H&P - Vital Signs Vital Signs: Temperature 98.4 F Pulse Rate [Left Brachial] 72 Pulse Rate [Right Brachial] 66 Respiratory Rate 20 Blood Pressure [Left Arm] 199/88 Blood Pressure 187/77 O2 Sat by Pulse Oximetry 93 - Physical Exam Oriented: Normal (pt is alert and cooperative ) Eyes: Normal Ear: Normal Nose: Normal Throat: Normal Respiratory: Normal Cardiovascular: Edema (RIGHT HAND ) : Normal GI:Auscultation: Normal GI:Palpation: Normal GI: Tenderness: Normal Skin: Wound (RIGHT HAND SOFT TISSUE HEMATOMA) Musculoskeletal: Hand (ROM of the fingers is improving with much less swelling . .pulses are palpable. some tunneling on the fingers) Psychiatric: Normal Mood Description: Calm Affect: Normal Speech Pattern: Clear, Appropriate - Laboratory and Diagnostics Result Diagrams: 01/23/18 04:05 01/23/18 04:05 Labs: 01/23/18 14:54 Hand - Right Gram Stain - Final 01/23/18 14:54 Hand - Right Wound Culture - Preliminary Laboratory WBC 7.8 X10^3/uL (3.6-10.0) 01/23/18 04:05 RBC 2.87 X10^6/uL (3.5-5.4) L 01/23/18 04:05 Hgb 9.5 g/dL (12.0-16.0) L 01/23/18 04:05 Hct 27.6 % (36.0-47.0) L 01/23/18 04:05 MCV 96.1 fL (80.0-100.0) 01/23/18 04:05 MCH 33.0 pg (27.0-34.0) 01/23/18 04:05 MCHC 34.3 g/dL (33.0-35.0) 01/23/18 04:05 RDW 13.7 % (11.6-16.5) 01/23/18 04:05 Plt Count 297 X10^3/uL (150.0-450.0) 01/23/18 04:05 MPV 7.4 fL (7.4-11.0) 01/23/18 04:05 Neut % 63.9 % (42.0-75.0) 01/23/18 04:05 Lymph % 17.1 % (21.0-51.0) L 01/23/18 04:05 [place] % 10.0 % (0.0-13.0) 01/23/18 04:05 Eos % 8.4 % (0.9-2.9) H 01/23/18 04:05 Baso % 0.6 % (0.2-1.0) 01/23/18 04:05 Neut # 5.0 x10^3/uL (2.2-4.8) H 01/23/18 04:05 Lymph # 1.3 X10^3/uL (1.3-2.9) 01/23/18 04:05 [place] # 0.8 x10^3/uL (0.3-0.8) 01/23/18 04:05 Eos # 0.7 x10^3/uL (0.0-0.2) H 01/23/18 04:05 Baso # 0.0 X10^3/uL (0.0-0.1) 01/23/18 04:05 Absolute Nucleated RBC 0.0 /100WBC 01/23/18 04:05 Sodium 136 mmol/L (136-145) 01/23/18 04:05 Corrected Sodium 140 mmol/L (136-145) 01/23/18 04:05 Potassium 4.4 mmol/L (3.5-5.1) 01/23/18 04:05 Chloride 103 mmol/L (98-107) 01/23/18 04:05 Carbon Dioxide 25.9 mmol/L (21-32) 01/23/18 04:05 BUN 15 mg/dL (7-18) 01/23/18 04:05 Creatinine 1.03 mg/dL (0.55-1.02) H 01/23/18 04:05 Est GFR (MDRD) Af Amer > 60 (>60) 01/23/18 04:05 Est GFR (MDRD) Non-Af 54 (>60) L 01/23/18 04:05 Glucose 252 mg/dL (65-99) H 01/23/18 04:05 POC Glucose (mg/dL) 261 mg/dL (65-99) H 01/24/18 11:20 Calcium 8.4 mg/dL (8.5-10.1) L 01/23/18 04:05 Corrected Calcium 9.6 mg/dL (8.5-10.1) 01/23/18 04:05 Total Bilirubin 0.30 mg/dL (0.2-1.0) 01/23/18 04:05 AST 14 Units/L (15-37) L 01/23/18 04:05 ALT 14 Units/L (12-78) 01/23/18 04:05 Alkaline Phosphatase 57 Units/L (46-116) 01/23/18 04:05 Total Protein 6.9 g/dL (6.4-8.2) 01/23/18 04:05 Albumin 2.5 g/dL (3.4-5.0) L 01/23/18 04:05 Globulin 4.4 g/dL (2.5-4.5) 01/23/18 04:05 Albumin/Globulin Ratio 0.6 Ratio (1.1-2.1) L 01/23/18 04:05 Tissue Pathology To follow 01/23/18 15:20 - Assessment and Plan 1: trauma to Rt hand with large soft tissue hematoma. large devitalized skin on the dorsal aspect . required debridement in the OR. same IV ATB and local care. not ready for coverage yet.. - Problem Patient Problems: Patient Problems Traumatic hematoma of right hand (Acute) S60.221A Unsteady gait (Acute) R26.81
[2018-01-24] MEDS: SNACK - Diabetic Appropriate PO SCH ×2 (16:58→20:08)
[2018-01-24] MEDS: ZOCOR TAB 40 MG PO SCH (20:07)
[2018-01-24] MEDS: XANAX PO SCH (20:07)
[2018-01-25] MEDS: INSULIN DEGLUDEC 14 UNIT SC SCH (09:18)
[2018-01-25] MEDS: ANTIVERT TAB 25 MG PO SCH ×2 (09:19→20:05)
[2018-01-25] MEDS: AUGMENTIN 500 MG/125 MG TAB PO SCH ×2 (09:19→20:04)
[2018-01-25] MEDS: HEMOCYTE-PLUS PO SCH (09:19)
[2018-01-25] MEDS: PLETAL PO SCH (09:20)
[2018-01-25] MEDS: XARELTO PO SCH (09:21)
[2018-01-25] MEDS: NEOSPORIN OINT TOP SCH (09:21)
[2018-01-25] MEDS: ASPIRIN PO SCH (09:21)
[2018-01-25] MEDS: ISOSORBIDE MONONITRATE ER PO SCH (09:21)
[2018-01-25] MEDS: GLUCOPHAGE XR PO SCH ×2 (09:21→20:05)
[2018-01-25] MEDS: SYNTHROID 100 mcg TAB PO SCH (09:21)
[2018-01-25] MEDS: NEURONTIN CAP 100 MG PO SCH ×2 (09:21→20:04)
[2018-01-25] MEDS: MICRO K EXTEN CAP 10 MEQ PO SCH ×2 (09:21→20:05)
[2018-01-25] MEDS: COMBIGAN EYE DROPS EACHEYE SCH ×2 (09:22→20:05)
[2018-01-25] MEDS: COLACE CAP 100 MG PO SCH ×2 (09:44→20:04)
[2018-01-25] MEDS: MILK OF MAGNESIA PO SCH ×3 (09:44→20:06)
[2018-01-25] MEDS: HumuLIN R SUBCUT PRN ×3 (11:45→21:26)
--- NOTE | 2018-01-25 18:12 | DR.PROGNOT ---
Hospital Progress Notes - Progress Note for Day of: Progress Note Date: 01/25/18 - Chief Complaint Chief Complaint: improvement of the hand swelling. mild bloody drainage Rt hand incision . able to flex all fingers with some limitation because of the swelling. no necrosis or active infection - Past Medical Family Social History Past Med/Fam/Surg Hx: No changes since H&P Allergies: Allergies gatifloxacin [From Tequin] Allergy (Verified 01/14/18 11:07) sulfamethoxazole [From Septra] Allergy (Verified 01/14/18 11:07) trimethoprim [From Septra] Allergy (Verified 01/14/18 11:07) - Review Of Systems ROS: No change since H&P - Vital Signs Vital Signs: Temperature 98.3 F Pulse Rate [Left Brachial] 77 Pulse Rate [Right Brachial] 66 Respiratory Rate 16 Blood Pressure [Left Arm] 107/56 Blood Pressure 187/77 O2 Sat by Pulse Oximetry 94 - Physical Exam Oriented: Normal (pt is alert and cooperative ) Eyes: Normal Ear: Normal Nose: Normal Throat: Normal Respiratory: Normal Cardiovascular: Edema (RIGHT HAND ) : Normal GI:Auscultation: Normal GI:Palpation: Normal GI: Tenderness: Normal Skin: Wound Musculoskeletal: Hand (ROM of the fingers is improving with much less swelling .still having edema of the dorsum of rt hand . .pulses are palpable. some tunneling of skin edges .) Psychiatric: Normal Mood Description: Calm Affect: Normal Speech Pattern: Clear, Appropriate - Laboratory and Diagnostics Result Diagrams: 01/23/18 04:05 01/23/18 04:05 Labs: 01/23/18 14:54 Hand - Right Gram Stain - Final 01/23/18 14:54 Hand - Right Wound Culture - Preliminary Laboratory WBC 7.8 X10^3/uL (3.6-10.0) 01/23/18 04:05 RBC 2.87 X10^6/uL (3.5-5.4) L 01/23/18 04:05 Hgb 9.5 g/dL (12.0-16.0) L 01/23/18 04:05 Hct 27.6 % (36.0-47.0) L 01/23/18 04:05 MCV 96.1 fL (80.0-100.0) 01/23/18 04:05 MCH 33.0 pg (27.0-34.0) 03/05/18 04:05 MCHC 34.3 g/dL (33.0-35.0) 01/23/18 04:05 RDW 13.7 % (11.6-16.5) 01/23/18 04:05 Plt Count 297 X10^3/uL (150.0-450.0) 01/23/18 04:05 MPV 7.4 fL (7.4-11.0) 01/23/18 04:05 Neut % 63.9 % (42.0-75.0) 01/23/18 04:05 Lymph % 17.1 % (21.0-51.0) L 01/23/18 04:05 [place] % 10.0 % (0.0-13.0) 01/23/18 04:05 Eos % 8.4 % (0.9-2.9) H 01/23/18 04:05 Baso % 0.6 % (0.2-1.0) 01/23/18 04:05 Neut # 5.0 x10^3/uL (2.2-4.8) H 01/23/18 04:05 Lymph # 1.3 X10^3/uL (1.3-2.9) 01/23/18 04:05 [place] # 0.8 x10^3/uL (0.3-0.8) 01/23/18 04:05 Eos # 0.7 x10^3/uL (0.0-0.2) H 01/23/18 04:05 Baso # 0.0 X10^3/uL (0.0-0.1) 01/23/18 04:05 Absolute Nucleated RBC 0.0 /100WBC 01/23/18 04:05 Sodium 136 mmol/L (136-145) 01/23/18 04:05 Corrected Sodium 140 mmol/L (136-145) 01/23/18 04:05 Potassium 4.4 mmol/L (3.5-5.1) 01/23/18 04:05 Chloride 103 mmol/L (98-107) 01/23/18 04:05 Carbon Dioxide 25.9 mmol/L (21-32) 01/23/18 04:05 BUN 15 mg/dL (7-18) 01/23/18 04:05 Creatinine 1.03 mg/dL (0.55-1.02) H 01/23/18 04:05 Est GFR (MDRD) Af Amer > 60 (>60) 01/23/18 04:05 Est GFR (MDRD) Non-Af 54 (>60) L 01/23/18 04:05 Glucose 252 mg/dL (65-99) H 01/23/18 04:05 POC Glucose (mg/dL) 296 mg/dL (65-99) H 01/25/18 17:06 Calcium 8.4 mg/dL (8.5-10.1) L 01/23/18 04:05 Corrected Calcium 9.6 mg/dL (8.5-10.1) 01/23/18 04:05 Total Bilirubin 0.30 mg/dL (0.2-1.0) 01/23/18 04:05 AST 14 Units/L (15-37) L 01/23/18 04:05 ALT 14 Units/L (12-78) 01/23/18 04:05 Alkaline Phosphatase 57 Units/L (46-116) 01/23/18 04:05 Total Protein 6.9 g/dL (6.4-8.2) 01/23/18 04:05 Albumin 2.5 g/dL (3.4-5.0) L 01/23/18 04:05 Globulin 4.4 g/dL (2.5-4.5) 01/23/18 04:05 Albumin/Globulin Ratio 0.6 Ratio (1.1-2.1) L 01/23/18 04:05 Tissue Pathology To follow 01/23/18 15:20 - Assessment and Plan 1: trauma to Rt hand with large soft tissue hematoma. large devitalized skin on the dorsal aspect . required debridement in the OR. same IV ATB and local care. not ready for coverage yet.. - Problem Patient Problems: Patient Problems Traumatic hematoma of right hand (Acute) S60.221A Unsteady gait (Acute) R26.81
[2018-01-25] MEDS: XANAX PO SCH (20:04)
[2018-01-25] MEDS: ZOCOR TAB 40 MG PO SCH (20:05)
[2018-01-25] MEDS: SNACK - Diabetic Appropriate PO SCH (20:05)
[2018-01-26 05:14] LABS: BASOPHILS % (AUTO) 0.5 % (0.2-1.0); EOSINOPHILS # (AUTO) 0.7 x10^3/uL (0.0-0.2); EOSINOPHILS % (AUTO) 9.9 % (0.9-2.9); HEMATOCRIT 27.1 % (36.0-47.0); HEMOGLOBIN 9.3 g/dL (12.0-16.0); LYMPHOCYTES # (AUTO) 1.3 X10^3/uL (1.3-2.9); MEAN CORPUSCULAR HEMOGLOBIN 32.7 pg (27.0-34.0); MEAN CORPUSCULAR HGB CONC 34.3 g/dL (33.0-35.0); MEAN CORPUSCULAR VOLUME 95.3 fL (80.0-100.0); MEAN PLATELET VOLUME 7.4 fL (7.4-11.0); MONOCYTES # (AUTO) 0.9 x10^3/uL (0.3-0.8); MONOCYTES % (AUTO) 12.7 % (0.0-13.0); NEUTROPHILS # (AUTO) 4.3 x10^3/uL (2.2-4.8); NEUTROPHILS % (AUTO) 58.9 % (42.0-75.0); PLATELET COUNT 312 X10^3/uL (150.0-450.0); RED BLOOD COUNT 2.84 X10^6/uL (3.5-5.4); RED CELL DISTRIBUTION WIDTH 13.9 % (11.6-16.5); WHITE BLOOD COUNT 7.3 X10^3/uL (3.6-10.0)
[2018-01-26 05:25] LABS: ALANINE AMINOTRANSFERASE 11 Units/L (12-78); ALBUMIN 2.5 g/dL (3.4-5.0); ALKALINE PHOSPHATASE 57 Units/L (46-116); ASPARTATE AMINO TRANSFERASE 13 Units/L (15-37); BLOOD UREA NITROGEN 16 mg/dL (7-18); CALCIUM 8.3 mg/dL (8.5-10.1); CARBON DIOXIDE 27.8 mmol/L (21-32); CHLORIDE 103 mmol/L (98-107); COR CA(FOR HYPOALB) 9.5 mg/dL (8.5-10.1); CREATININE 0.92 mg/dL (0.55-1.02); SODIUM 140 mmol/L (136-145); TOTAL PROTEIN 6.7 g/dL (6.4-8.2); eGFR BLACK RACES > 60 (>60); eGFR NON BLACK RACES > 60 (>60)
[2018-01-26] MEDS: ASPIRIN PO SCH (09:53)
[2018-01-26] MEDS: PLETAL PO SCH (09:54)
[2018-01-26] MEDS: XARELTO PO SCH (09:54)
[2018-01-26] MEDS: GLUCOPHAGE XR PO SCH ×2 (09:54→20:43)
[2018-01-26] MEDS: ANTIVERT TAB 25 MG PO SCH ×2 (09:54→20:42)
[2018-01-26] MEDS: SYNTHROID 100 mcg TAB PO SCH (09:54)
[2018-01-26] MEDS: ISOSORBIDE MONONITRATE ER PO SCH (09:55)
[2018-01-26] MEDS: NEURONTIN CAP 100 MG PO SCH ×2 (09:55→20:44)
[2018-01-26] MEDS: HEMOCYTE-PLUS PO SCH (09:56)
[2018-01-26] MEDS: MICRO K EXTEN CAP 10 MEQ PO SCH ×2 (09:56→20:51)
[2018-01-26] MEDS: COLACE CAP 100 MG PO SCH ×2 (09:56→20:44)
[2018-01-26] MEDS: AUGMENTIN 500 MG/125 MG TAB PO SCH ×2 (09:56→20:41)
[2018-01-26] MEDS: COMBIGAN EYE DROPS EACHEYE SCH ×2 (09:57→20:54)
[2018-01-26] MEDS: NEOSPORIN OINT TOP SCH (09:57)
[2018-01-26] MEDS: INSULIN DEGLUDEC 14 UNIT SC SCH (09:58)
[2018-01-26] MEDS: MILK OF MAGNESIA PO SCH ×2 (09:59→20:45)
[2018-01-26] MEDS: HumuLIN R SUBCUT PRN ×2 (12:15→17:44)
[2018-01-26] MEDS ORDERED: PREPARATION H OINT ONE (14:19)
[2018-01-26] MEDS ORDERED: PREPARATION H OINT RECTAL PRN (14:55)
[2018-01-26] MEDS: ZOCOR TAB 40 MG PO SCH (20:45)
[2018-01-26] MEDS: XANAX PO SCH (20:45)
[2018-01-26] MEDS: SNACK - Diabetic Appropriate PO SCH (20:54)
[2018-01-27] MEDS: ASPIRIN PO SCH (10:00)
[2018-01-27] MEDS: COMBIGAN EYE DROPS EACHEYE SCH ×2 (10:00→20:56)
[2018-01-27] MEDS: NEURONTIN CAP 100 MG PO SCH ×2 (10:00→20:57)
[2018-01-27] MEDS: ANTIVERT TAB 25 MG PO SCH ×2 (10:00→20:56)
[2018-01-27] MEDS: GLUCOPHAGE XR PO SCH ×2 (10:00→20:56)
[2018-01-27] MEDS: AUGMENTIN 500 MG/125 MG TAB PO SCH ×2 (10:00→20:56)
[2018-01-27] MEDS: COLACE CAP 100 MG PO SCH ×2 (10:00→20:56)
[2018-01-27] MEDS: SYNTHROID 100 mcg TAB PO SCH (10:58)
[2018-01-27] MEDS: PLETAL PO SCH (10:58)
[2018-01-27] MEDS: XARELTO PO SCH (10:59)
[2018-01-27] MEDS: MILK OF MAGNESIA PO SCH ×2 (11:00→20:57)
[2018-01-27] MEDS: HEMOCYTE-PLUS PO SCH (11:03)
[2018-01-27] MEDS: MICRO K EXTEN CAP 10 MEQ PO SCH ×2 (11:03→20:57)
[2018-01-27] MEDS: ISOSORBIDE MONONITRATE ER PO SCH (11:03)
[2018-01-27] MEDS: NEOSPORIN OINT TOP SCH (11:04)
[2018-01-27] MEDS: INSULIN DEGLUDEC 14 UNIT SC SCH (11:14)
[2018-01-27] MEDS: HumuLIN R SUBCUT PRN ×3 (13:35→21:12)
[2018-01-27] MEDS: SNACK - Diabetic Appropriate PO SCH (20:56)
[2018-01-27] MEDS: XANAX PO SCH (20:57)
[2018-01-27] MEDS: ZOCOR TAB 40 MG PO SCH (20:58)
[2018-01-28] MEDS: HumuLIN R SUBCUT PRN ×3 (05:45→16:11)
[2018-01-28] MEDS: COLACE CAP 100 MG PO SCH ×2 (09:42→20:53)
[2018-01-28] MEDS: AUGMENTIN 500 MG/125 MG TAB PO SCH ×2 (09:42→20:54)
[2018-01-28] MEDS: NEURONTIN CAP 100 MG PO SCH ×2 (09:42→20:53)
[2018-01-28] MEDS: SYNTHROID 100 mcg TAB PO SCH (09:43)
[2018-01-28] MEDS: ISOSORBIDE MONONITRATE ER PO SCH (09:43)
[2018-01-28] MEDS: ASPIRIN PO SCH (09:43)
[2018-01-28] MEDS: XARELTO PO SCH (09:43)
[2018-01-28] MEDS: GLUCOPHAGE XR PO SCH ×2 (09:43→20:54)
[2018-01-28] MEDS: ANTIVERT TAB 25 MG PO SCH ×2 (09:44→20:53)
[2018-01-28] MEDS: MICRO K EXTEN CAP 10 MEQ PO SCH ×2 (09:44→20:53)
[2018-01-28] MEDS: HEMOCYTE-PLUS PO SCH (09:44)
[2018-01-28] MEDS: PLETAL PO SCH (09:46)
[2018-01-28] MEDS: MILK OF MAGNESIA PO SCH ×2 (09:51→20:54)
[2018-01-28] MEDS: COMBIGAN EYE DROPS EACHEYE SCH ×2 (09:51→20:54)
[2018-01-28] MEDS: INSULIN DEGLUDEC 14 UNIT SC SCH (09:54)
[2018-01-28] MEDS: NEOSPORIN OINT TOP SCH (15:45)
[2018-01-28] MEDS: SNACK - Diabetic Appropriate PO SCH (20:52)
[2018-01-28] MEDS: XANAX PO SCH (20:55)
[2018-01-28] MEDS: ZOCOR TAB 40 MG PO SCH (20:55)
[2018-01-29 06:06] LABS: BASOPHILS % (AUTO) 0.6 % (0.2-1.0); EOSINOPHILS # (AUTO) 0.8 x10^3/uL (0.0-0.2); EOSINOPHILS % (AUTO) 10.8 % (0.9-2.9); HEMATOCRIT 29.2 % (36.0-47.0); HEMOGLOBIN 9.8 g/dL (12.0-16.0); LYMPHOCYTES # (AUTO) 1.3 X10^3/uL (1.3-2.9); LYMPHOCYTES % (AUTO) 17.3 % (21.0-51.0); MEAN CORPUSCULAR HEMOGLOBIN 31.9 pg (27.0-34.0); MEAN CORPUSCULAR HGB CONC 33.5 g/dL (33.0-35.0); MEAN CORPUSCULAR VOLUME 95.2 fL (80.0-100.0); MEAN PLATELET VOLUME 7.4 fL (7.4-11.0); MONOCYTES # (AUTO) 0.9 x10^3/uL (0.3-0.8); MONOCYTES % (AUTO) 11.6 % (0.0-13.0); NEUTROPHILS # (AUTO) 4.6 x10^3/uL (2.2-4.8); NEUTROPHILS % (AUTO) 59.7 % (42.0-75.0); PLATELET COUNT 346 X10^3/uL (150.0-450.0); RED BLOOD COUNT 3.07 X10^6/uL (3.5-5.4); RED CELL DISTRIBUTION WIDTH 14.1 % (11.6-16.5); WHITE BLOOD COUNT 7.6 X10^3/uL (3.6-10.0)
[2018-01-29 06:10] LABS: ALANINE AMINOTRANSFERASE 12 Units/L (12-78); ALBUMIN 2.6 g/dL (3.4-5.0); ALKALINE PHOSPHATASE 68 Units/L (46-116); ASPARTATE AMINO TRANSFERASE 11 Units/L (15-37); BLOOD UREA NITROGEN 17 mg/dL (7-18); CALCIUM 8.7 mg/dL (8.5-10.1); CARBON DIOXIDE 27.1 mmol/L (21-32); CHLORIDE 101 mmol/L (98-107); COR CA(FOR HYPOALB) 9.8 mg/dL (8.5-10.1); COR NA(FOR HYPERGLY) 139 mmol/L (136-145); CREATININE 1.03 mg/dL (0.55-1.02); SODIUM 138 mmol/L (136-145); TOTAL PROTEIN 7.1 g/dL (6.4-8.2); eGFR BLACK RACES > 60 (>60); eGFR NON BLACK RACES 54 (>60)
[2018-01-29] MEDS: AUGMENTIN 500 MG/125 MG TAB PO SCH ×3 (09:26→21:27)
[2018-01-29] MEDS: MILK OF MAGNESIA PO SCH ×2 (09:27→20:53)
[2018-01-29] MEDS: ASPIRIN PO SCH (09:27)
[2018-01-29] MEDS: ISOSORBIDE MONONITRATE ER PO SCH (09:28)
[2018-01-29] MEDS: GLUCOPHAGE XR PO SCH ×2 (09:29→20:52)
[2018-01-29] MEDS: SYNTHROID 100 mcg TAB PO SCH (09:32)
[2018-01-29] MEDS: NEURONTIN CAP 100 MG PO SCH ×2 (09:34→20:51)
[2018-01-29] MEDS: XARELTO PO SCH (09:34)
[2018-01-29] MEDS: HEMOCYTE-PLUS PO SCH (09:35)
[2018-01-29] MEDS: ANTIVERT TAB 25 MG PO SCH ×2 (09:38→20:52)
[2018-01-29] MEDS: COLACE CAP 100 MG PO SCH ×2 (09:39→20:52)
[2018-01-29] MEDS: PLETAL PO SCH (09:40)
[2018-01-29] MEDS: MICRO K EXTEN CAP 10 MEQ PO SCH ×2 (09:40→20:52)
[2018-01-29] MEDS: COMBIGAN EYE DROPS EACHEYE SCH ×2 (09:41→20:53)
[2018-01-29] MEDS: INSULIN DEGLUDEC 14 UNIT SC SCH (09:42)
[2018-01-29] MEDS: NEOSPORIN OINT TOP SCH (11:00)
[2018-01-29] MEDS: HumuLIN R SUBCUT PRN ×2 (11:47→17:31)
[2018-01-29] MEDS: XANAX PO SCH (20:51)
[2018-01-29] MEDS: SNACK - Diabetic Appropriate PO SCH (20:52)
[2018-01-29] MEDS: ZOCOR TAB 40 MG PO SCH (20:52)
[2018-01-29] MEDS ORDERED: AUGMENTIN 500 MG/125 MG TAB PO ONE (21:09)
[2018-01-30] MEDS: AUGMENTIN 500 MG/125 MG TAB PO SCH ×2 (10:02→21:09)
[2018-01-30] MEDS: ASPIRIN PO SCH (10:04)
[2018-01-30] MEDS: HEMOCYTE-PLUS PO SCH (10:05)
[2018-01-30] MEDS: ANTIVERT TAB 25 MG PO SCH ×2 (10:06→21:10)
[2018-01-30] MEDS: SYNTHROID 100 mcg TAB PO SCH (10:07)
[2018-01-30] MEDS: GLUCOPHAGE XR PO SCH ×2 (10:08→21:08)
[2018-01-30] MEDS: ISOSORBIDE MONONITRATE ER PO SCH (10:08)
[2018-01-30] MEDS: COLACE CAP 100 MG PO SCH ×2 (10:09→21:09)
[2018-01-30] MEDS: XARELTO PO SCH (10:10)
[2018-01-30] MEDS: NEURONTIN CAP 100 MG PO SCH ×2 (10:11→21:10)
[2018-01-30] MEDS: PLETAL PO SCH (10:12)
[2018-01-30] MEDS: MICRO K EXTEN CAP 10 MEQ PO SCH ×2 (10:13→21:09)
[2018-01-30] MEDS: NEOSPORIN OINT TOP SCH (10:14)
[2018-01-30] MEDS: COMBIGAN EYE DROPS EACHEYE SCH ×2 (10:15→21:11)
[2018-01-30] MEDS: MILK OF MAGNESIA PO SCH (10:15)
[2018-01-30] MEDS: INSULIN DEGLUDEC 14 UNIT SC SCH (10:17)
[2018-01-30] MEDS: HumuLIN R SUBCUT PRN ×2 (14:10→17:54)
[2018-01-30] MEDS ORDERED: MILK OF MAGNESIA PO PRN (15:46)
[2018-01-30] MEDS: SNACK - Diabetic Appropriate PO SCH (19:44)
[2018-01-30] MEDS: XANAX PO SCH (21:08)
[2018-01-30] MEDS: ZOCOR TAB 40 MG PO SCH (21:08)
[2018-01-31] MEDS: INSULIN DEGLUDEC 14 UNIT SC SCH (09:00)
[2018-01-31] MEDS: COMBIGAN EYE DROPS EACHEYE SCH ×2 (09:02→21:08)
[2018-01-31] MEDS: NEOSPORIN OINT TOP SCH (09:03)
[2018-01-31] MEDS: HumuLIN R SUBCUT PRN (12:02)
[2018-01-31] MEDS: AUGMENTIN 500 MG/125 MG TAB PO SCH ×2 (14:12→21:07)
[2018-01-31] MEDS: ASPIRIN PO SCH (14:12)
[2018-01-31] MEDS: GLUCOPHAGE XR PO SCH ×2 (14:12→21:09)
[2018-01-31] MEDS: ANTIVERT TAB 25 MG PO SCH ×2 (14:12→21:06)
[2018-01-31] MEDS: COLACE CAP 100 MG PO SCH ×2 (14:12→21:08)
[2018-01-31] MEDS: XARELTO PO SCH (14:12)
[2018-01-31] MEDS: MICRO K EXTEN CAP 10 MEQ PO SCH ×2 (14:13→21:09)
[2018-01-31] MEDS: ISOSORBIDE MONONITRATE ER PO SCH (14:13)
[2018-01-31] MEDS: NEURONTIN CAP 100 MG PO SCH ×2 (14:13→21:11)
[2018-01-31] MEDS: HEMOCYTE-PLUS PO SCH (14:13)
[2018-01-31] MEDS: PLETAL PO SCH (14:13)
[2018-01-31] MEDS: SYNTHROID 100 mcg TAB PO SCH (14:14)
[2018-01-31] MEDS ORDERED: NS 1000 ML 1,000 ML ONE (14:38)
[2018-01-31] MEDS ORDERED: FENTANYL INJ 100 mcg ONE (15:27)
[2018-01-31] MEDS ORDERED: BACITRACIN VIAL ONE ×2 (15:27→15:58)
[2018-01-31] MEDS ORDERED: XYLOCAINE 1% and EPINEPHRINE 1:100,000 ONE (15:30)
[2018-01-31] MEDS ORDERED: SUPRANE IN ONE (15:41)
[2018-01-31] MEDS ORDERED: ZOFRAN INJ 4 MG VIAL ONE (15:41)
[2018-01-31] MEDS ORDERED: EPHEDRINE SULFATE INJ ONE (15:41)
[2018-01-31] MEDS ORDERED: DIPRIVAN VIAL ONE (15:41)
[2018-01-31] MEDS ORDERED: NS IRRIGATION 1000 ML 1,000 ML IR ONE (15:50)
[2018-01-31] MEDS ORDERED: ADRENALINE CHL INJ ONE (16:22)
[2018-01-31] MEDS ORDERED: ZOFRAN INJ 4 MG VIAL IVP PRN (17:20)
[2018-01-31] MEDS ORDERED: BENADRYL INJ 50 MG VIAL IVP PRN (17:20)
[2018-01-31] MEDS ORDERED: PHENERGAN INJ 25 MG IVP PRN (17:20)
[2018-01-31] MEDS ORDERED: DILAUDID INJ IVP PRN (17:20)
[2018-01-31] MEDS ORDERED: REGLAN INJ 10 MG VIAL IVP PRN (17:20)
--- NOTE | 2018-01-31 19:15 | OR.GENERIC ---
Post-Op Note Generic - Post-Op Note Operative Report: Pt underwent split thickness to the rt hand . did very well .. will keep the dressing for a week .but pt could be discharged in two days and will follow as out pt
[2018-01-31] MEDS: SNACK - Diabetic Appropriate PO SCH (20:30)
[2018-01-31] MEDS: XANAX PO SCH (21:10)
[2018-01-31] MEDS: ZOCOR TAB 40 MG PO SCH (21:11)
[2018-02-01 06:15] LABS: BASOPHILS % (AUTO) 0.4 % (0.2-1.0); EOSINOPHILS # (AUTO) 0.7 x10^3/uL (0.0-0.2); EOSINOPHILS % (AUTO) 8.8 % (0.9-2.9); HEMATOCRIT 30.6 % (36.0-47.0); HEMOGLOBIN 10.3 g/dL (12.0-16.0); LYMPHOCYTES % (AUTO) 12.7 % (21.0-51.0); MEAN CORPUSCULAR HEMOGLOBIN 31.6 pg (27.0-34.0); MEAN CORPUSCULAR HGB CONC 33.5 g/dL (33.0-35.0); MEAN CORPUSCULAR VOLUME 94.4 fL (80.0-100.0); MEAN PLATELET VOLUME 7.3 fL (7.4-11.0); MONOCYTES # (AUTO) 0.7 x10^3/uL (0.3-0.8); NEUTROPHILS # (AUTO) 5.7 x10^3/uL (2.2-4.8); NEUTROPHILS % (AUTO) 69.1 % (42.0-75.0); PLATELET COUNT 357 X10^3/uL (150.0-450.0); RED BLOOD COUNT 3.25 X10^6/uL (3.5-5.4); RED CELL DISTRIBUTION WIDTH 14.1 % (11.6-16.5); WHITE BLOOD COUNT 8.2 X10^3/uL (3.6-10.0)
[2018-02-01 06:45] LABS: ALANINE AMINOTRANSFERASE 9 Units/L (12-78); ALBUMIN 2.6 g/dL (3.4-5.0); ALKALINE PHOSPHATASE 68 Units/L (46-116); ASPARTATE AMINO TRANSFERASE 13 Units/L (15-37); BLOOD UREA NITROGEN 13 mg/dL (7-18); CALCIUM 8.4 mg/dL (8.5-10.1); CARBON DIOXIDE 25.4 mmol/L (21-32); CHLORIDE 102 mmol/L (98-107); COR CA(FOR HYPOALB) 9.5 mg/dL (8.5-10.1); COR NA(FOR HYPERGLY) 138 mmol/L (136-145); SODIUM 136 mmol/L (136-145); eGFR BLACK RACES > 60 (>60); eGFR NON BLACK RACES 56 (>60)
[2018-02-01] MEDS: AUGMENTIN 500 MG/125 MG TAB PO SCH ×2 (08:43→20:54)
[2018-02-01] MEDS: XARELTO PO SCH (08:43)
[2018-02-01] MEDS: COMBIGAN EYE DROPS EACHEYE SCH ×2 (08:45→20:59)
[2018-02-01] MEDS: MICRO K EXTEN CAP 10 MEQ PO SCH ×2 (08:45→20:57)
[2018-02-01] MEDS: HEMOCYTE-PLUS PO SCH (08:46)
[2018-02-01] MEDS: ASPIRIN PO SCH (08:46)
[2018-02-01] MEDS: PLETAL PO SCH (08:46)
[2018-02-01] MEDS: SYNTHROID 100 mcg TAB PO SCH (08:46)
[2018-02-01] MEDS: GLUCOPHAGE XR PO SCH ×2 (08:46→20:56)
[2018-02-01] MEDS: ISOSORBIDE MONONITRATE ER PO SCH (08:47)
[2018-02-01] MEDS: NEURONTIN CAP 100 MG PO SCH ×2 (08:47→20:56)
[2018-02-01] MEDS: ANTIVERT TAB 25 MG PO SCH ×2 (08:47→20:54)
[2018-02-01] MEDS: INSULIN DEGLUDEC 14 UNIT SC SCH (08:48)
[2018-02-01] MEDS: COLACE CAP 100 MG PO SCH ×2 (08:49→20:55)
[2018-02-01] MEDS: NEOSPORIN OINT TOP SCH (10:42)
[2018-02-01] MEDS: HumuLIN R SUBCUT PRN (13:28)
--- NOTE | 2018-02-01 19:18 | PCM.PROG ---
Progress Note - Progress Note for Day of Date: 02/01/18 - Subjective Subjective: IS SWINGBED STATUS FOR PHYSICAL THERAPY DUE TO UNSTEADY GAIT AND GENERALIZED WEAKNESS. SHE IS CURRENTLY BEING TREATED FOR RIGHT HAND CELLULITIS AND A HEMATOMA FOLLOWING A FALL AT HOME OVER THE WEEKEND. SHE IS STATUS POST I&D OF HEMATOMA TO RIGHT HAND AND A SKIN GRAFT. TODAY, SHE IS ALERT AND ORIENTED, SITTING UP IN BED ON MORNING ROUNDS. RIGHT ARM/HAND REMAINS IN A SLING AND IS ELEVATED ON PILLOWS. SWELLING AND DISCOLORATION REMAIN TO THE RIGHT HAND, ALTHOUGH SIGNIFICANTLY IMPROVED SINCE ADMISSION. MOVEMENT OF FINGERS IS LIMITED THIS MORNING. THERE IS A DRESSING PRESENT TO SKIN GRAFT SITE. HER VITALS THIS MORNING ARE 97.6-65-20-93%-141/67. LABS WERE OBTAINED. ABNORMAL LAB VALUES INCLUDE THE FOLLOWING: RBC 3.25, HGB 10.3, HCT 30.6, GLUCOSE 202, CALCIUM 8.4, AST 13, ALT 9, ALBUMIN 2.6. PHYSICAL THERAPY IS WORKING WITH PATIENT AND PATIENT CONTINUES TO BE COOPERATIVE. WE WILL CONTINUE WITH IV ANTIBIOTICS AND WOUND CARE PER INSTRUCTIONS. PATIENT IS SCHEDULED FOR DISCHARGE TOMORROW. WE WILL CONTINUE TO MONITOR PATIENT TODAY. - Past Medical Family Social History Past Med/Fam/Surg Hx: No changes since H&P Allergies: Allergies gatifloxacin [From Tequin] Allergy (Verified 01/14/18 11:07) sulfamethoxazole [From Septra] Allergy (Verified 01/14/18 11:07) trimethoprim [From Septra] Allergy (Verified 01/14/18 11:07) - Review of Systems ROS: No change since H&P - Vital Signs and I&O's Vital Signs: Temperature 97.4 F Pulse Rate [Left Brachial] 82 Pulse Rate [Right Brachial] 86 Pulse Rate 68 Respiratory Rate 18 Blood Pressure [Right Arm] 175/74 Blood Pressure [Left Arm] 97/56 Blood Pressure 173/79 O2 Sat by Pulse Oximetry 94 Intake and Output: Intake & Output 01/30/18 01/31/18 02/01/18 02/02/18 11:59 11:59 11:59 11:59 Intake Total 1140 1270 640 480 Output Total 255 Balance 1140 1270 385 480 - Physical Exam Oriented: Normal (pt is alert and cooperative ) Eyes: Normal Ear: Normal Nose: Normal Throat: Normal Respiratory: Normal Cardiovascular: Bradycardia, Edema (RIGHT HAND ) : Normal Auscultation: Bowel Sounds: Normal Palpation: Normal Tenderness: Normal Skin: Wound Musculoskeletal: Hand (ROM of the fingers is improving with much less swelling .still having edema of the dorsum of rt hand . .pulses are palpable. some tunneling of skin edges .) Psychiatric: Normal Mood Description: Calm Affect: Normal Speech Pattern: Clear, Appropriate - Laboratory and Diagnostics Result Diagrams: 02/01/18 04:09 02/01/18 04:09 Labs: 01/31/18 16:31 Hand - Right Gram Stain - Final 01/31/18 16:31 Hand - Right Wound Culture - Preliminary 01/23/18 14:54 Hand - Right Gram Stain - Final 01/23/18 14:54 Hand - Right Wound Culture - Final Laboratory WBC 8.2 X10^3/uL (3.6-10.0) 02/01/18 04:09 RBC 3.25 X10^6/uL (3.5-5.4) L 02/01/18 04:09 Hgb 10.3 g/dL (12.0-16.0) L 02/01/18 04:09 Hct 30.6 % (36.0-47.0) L 02/01/18 04:09 MCV 94.4 fL (80.0-100.0) 02/01/18 04:09 MCH 31.6 pg (27.0-34.0) 02/01/18 04:09 MCHC 33.5 g/dL (33.0-35.0) 02/01/18 04:09 RDW 14.1 % (11.6-16.5) 02/01/18 04:09 Plt Count 357 X10^3/uL (150.0-450.0) 02/01/18 04:09 MPV 7.3 fL (7.4-11.0) L 02/01/18 04:09 Neut % (Auto) 69.1 % (42.0-75.0) 02/01/18 04:09 Lymph % (Auto) 12.7 % (21.0-51.0) L 02/01/18 04:09 [place] % (Auto) 9.0 % (0.0-13.0) 02/01/18 04:09 Eos % (Auto) 8.8 % (0.9-2.9) H 02/01/18 04:09 Baso % (Auto) 0.4 % (0.2-1.0) 02/01/18 04:09 Neut # (Auto) 5.7 x10^3/uL (2.2-4.8) H 02/01/18 04:09 Lymph # (Auto) 1.0 X10^3/uL (1.3-2.9) L 02/01/18 04:09 [place] # (Auto) 0.7 x10^3/uL (0.3-0.8) 02/01/18 04:09 Eos # (Auto) 0.7 x10^3/uL (0.0-0.2) H 02/01/18 04:09 Baso # (Auto) 0.0 X10^3/uL (0.0-0.1) 02/01/18 04:09 Absolute Nucleated RBC 0.0 /100WBC 02/01/18 04:09 Sodium 136 mmol/L (136-145) 02/01/18 04:09 Corrected Sodium 138 mmol/L (136-145) 02/01/18 04:09 Potassium 4.7 mmol/L (3.5-5.1) 02/01/18 04:09 Chloride 102 mmol/L (98-107) 02/01/18 04:09 Carbon Dioxide 25.4 mmol/L (21-32) 02/01/18 04:09 BUN 13 mg/dL (7-18) 02/01/18 04:09 Creatinine 1.00 mg/dL (0.55-1.02) 02/01/18 04:09 Est GFR (MDRD) Af Amer > 60 (>60) 02/01/18 04:09 Est GFR (MDRD) Non-Af 56 (>60) L 02/01/18 04:09 Glucose 202 mg/dL (65-99) H 02/01/18 04:09 POC Glucose (mg/dL) 228 mg/dL (65-99) H 02/01/18 17:14 Calcium 8.4 mg/dL (8.5-10.1) L 02/01/18 04:09 Corrected Calcium 9.5 mg/dL (8.5-10.1) 02/01/18 04:09 Total Bilirubin 0.30 mg/dL (0.2-1.0) 02/01/18 04:09 AST 13 Units/L (15-37) L 02/01/18 04:09 ALT 9 Units/L (12-78) L 02/01/18 04:09 Alkaline Phosphatase 68 Units/L (46-116) 02/01/18 04:09 Total Protein 7.0 g/dL (6.4-8.2) 02/01/18 04:09 Albumin 2.6 g/dL (3.4-5.0) L 02/01/18 04:09 Globulin 4.4 g/dL (2.5-4.5) 02/01/18 04:09 Albumin/Globulin Ratio 0.6 Ratio (1.1-2.1) L 02/01/18 04:09 Tissue Pathology To follow 01/31/18 16:31 - Plan (1) Cellulitis of hand, right Status: Acute Plan: CONTINUE AUGMENTIN, CONTINUE WOUND CARE (2) Traumatic hematoma of right hand Status: Acute Qualifiers: Encounter type: initial encounter Qualified Code(s): S60.221A - Contusion of right hand, initial encounter Plan: CONTINUE AUGMENTIN, CONTINUE WOUND CARE, DEBRIDEMENT BY , CONTINUE TO MONITOR (3) Unsteady gait Status: Acute Plan: CONTINUE PHYSICAL THERAPY, CONTINUE TO MONITOR
--- NOTE | 2018-02-01 19:21 | PCM.PROG ---
Progress Note - Progress Note for Day of Date: 01/26/18 - Subjective Subjective: IS SWINGBED STATUS FOR PHYSICAL THERAPY DUE TO UNSTEADY GAIT AND GENERALIZED WEAKNESS. SHE IS CURRENTLY BEING TREATED FOR RIGHT HAND CELLULITIS AND A HEMATOMA FOLLOWING A FALL AT HOME OVER THE WEEKEND. SHE IS STATUS POST I&D OF HEMATOMA TO RIGHT HAND. TODAY, SHE IS ALERT AND ORIENTED, SITTING UP IN BED ON MORNING ROUNDS. RIGHT ARM/HAND REMAINS IN A SLING AND IS ELEVATED ON PILLOWS. SWELLING AND DISCOLORATION REMAIN TO THE RIGHT HAND. SHE HAS BETTER MOVEMENT OF FINGERS TODAY DUE TO DECREASED SWELLING SINCE TUESDAY. HEMATOMA HAS SLIGHTLY DECREASED. HER VITALS THIS MORNING ARE 97.5-70-24-92%-148/ 72. LABS WERE OBTAINED. SHE REMAINS HEMODYNAMICALLY STABLE TODAY. PATIENT CONTINUES TO BE COOPERATIVE WITH PHYSICAL THERAPY AND IS AMBULATING WITH ASSISTANCE. CONTINUES TO MONITOR WOUND SITE. WE WILL CONTINUE WITH IV ANTIBIOTICS AND WOUND CARE PER INSTRUCTIONS. WE PLAN TO FOLLOW UP WITH AM LABS AND CONTINUE TO MONITOR PATIENT. - Past Medical Family Social History Past Med/Fam/Surg Hx: No changes since H&P Allergies: Allergies gatifloxacin [From Tequin] Allergy (Verified 01/14/18 11:07) sulfamethoxazole [From Septra] Allergy (Verified 01/14/18 11:07) trimethoprim [From Septra] Allergy (Verified 01/14/18 11:07) - Review of Systems ROS: No change since H&P - Vital Signs and I&O's Vital Signs: Temperature 97.4 F Pulse Rate [Left Brachial] 82 Pulse Rate [Right Brachial] 86 Pulse Rate 68 Respiratory Rate 18 Blood Pressure [Right Arm] 175/74 Blood Pressure [Left Arm] 97/56 Blood Pressure 173/79 O2 Sat by Pulse Oximetry 94 Intake and Output: Intake & Output 01/30/18 01/31/18 02/01/18 02/02/18 11:59 11:59 11:59 11:59 Intake Total 1140 1270 640 480 Output Total 255 Balance 1140 1270 385 480 - Physical Exam Oriented: Normal (pt is alert and cooperative ) Eyes: Normal Ear: Normal Nose: Normal Throat: Normal Respiratory: Normal Cardiovascular: Bradycardia, Edema (RIGHT HAND ) : Normal Auscultation: Bowel Sounds: Normal Palpation: Normal Tenderness: Normal Skin: Wound Musculoskeletal: Hand (ROM of the fingers is improving with much less swelling .still having edema of the dorsum of rt hand . .pulses are palpable. some tunneling of skin edges .) Psychiatric: Normal Mood Description: Calm Affect: Normal Speech Pattern: Clear, Appropriate - Laboratory and Diagnostics Result Diagrams: 02/01/18 04:09 02/01/18 04:09 Labs: 01/31/18 16:31 Hand - Right Gram Stain - Final 01/31/18 16:31 Hand - Right Wound Culture - Preliminary 01/23/18 14:54 Hand - Right Gram Stain - Final 01/23/18 14:54 Hand - Right Wound Culture - Final Laboratory WBC 8.2 X10^3/uL (3.6-10.0) 02/01/18 04:09 RBC 3.25 X10^6/uL (3.5-5.4) L 02/01/18 04:09 Hgb 10.3 g/dL (12.0-16.0) L 02/01/18 04:09 Hct 30.6 % (36.0-47.0) L 02/01/18 04:09 MCV 94.4 fL (80.0-100.0) 02/01/18 04:09 MCH 31.6 pg (27.0-34.0) 02/01/18 04:09 MCHC 33.5 g/dL (33.0-35.0) 02/01/18 04:09 RDW 14.1 % (11.6-16.5) 02/01/18 04:09 Plt Count 357 X10^3/uL (150.0-450.0) 02/01/18 04:09 MPV 7.3 fL (7.4-11.0) L 02/01/18 04:09 Neut % (Auto) 69.1 % (42.0-75.0) 02/01/18 04:09 Lymph % (Auto) 12.7 % (21.0-51.0) L 02/01/18 04:09 [place] % (Auto) 9.0 % (0.0-13.0) 02/01/18 04:09 Eos % (Auto) 8.8 % (0.9-2.9) H 02/01/18 04:09 Baso % (Auto) 0.4 % (0.2-1.0) 02/01/18 04:09 Neut # (Auto) 5.7 x10^3/uL (2.2-4.8) H 02/01/18 04:09 Lymph # (Auto) 1.0 X10^3/uL (1.3-2.9) L 02/01/18 04:09 [place] # (Auto) 0.7 x10^3/uL (0.3-0.8) 02/01/18 04:09 Eos # (Auto) 0.7 x10^3/uL (0.0-0.2) H 02/01/18 04:09 Baso # (Auto) 0.0 X10^3/uL (0.0-0.1) 02/01/18 04:09 Absolute Nucleated RBC 0.0 /100WBC 02/01/18 04:09 Sodium 136 mmol/L (136-145) 02/01/18 04:09 Corrected Sodium 138 mmol/L (136-145) 02/01/18 04:09 Potassium 4.7 mmol/L (3.5-5.1) 02/01/18 04:09 Chloride 102 mmol/L (98-107) 02/01/18 04:09 Carbon Dioxide 25.4 mmol/L (21-32) 02/01/18 04:09 BUN 13 mg/dL (7-18) 02/01/18 04:09 Creatinine 1.00 mg/dL (0.55-1.02) 02/01/18 04:09 Est GFR (MDRD) Af Amer > 60 (>60) 02/01/18 04:09 Est GFR (MDRD) Non-Af 56 (>60) L 02/01/18 04:09 Glucose 202 mg/dL (65-99) H 02/01/18 04:09 POC Glucose (mg/dL) 228 mg/dL (65-99) H 02/01/18 17:14 Calcium 8.4 mg/dL (8.5-10.1) L 02/01/18 04:09 Corrected Calcium 9.5 mg/dL (8.5-10.1) 02/01/18 04:09 Total Bilirubin 0.30 mg/dL (0.2-1.0) 02/01/18 04:09 AST 13 Units/L (15-37) L 02/01/18 04:09 ALT 9 Units/L (12-78) L 02/01/18 04:09 Alkaline Phosphatase 68 Units/L (46-116) 02/01/18 04:09 Total Protein 7.0 g/dL (6.4-8.2) 02/01/18 04:09 Albumin 2.6 g/dL (3.4-5.0) L 02/01/18 04:09 Globulin 4.4 g/dL (2.5-4.5) 02/01/18 04:09 Albumin/Globulin Ratio 0.6 Ratio (1.1-2.1) L 02/01/18 04:09 Tissue Pathology To follow 01/31/18 16:31 - Plan (1) Cellulitis of hand, right Status: Acute Plan: CONTINUE AUGMENTIN, CONTINUE WOUND CARE (2) Traumatic hematoma of right hand Status: Acute Qualifiers: Encounter type: initial encounter Qualified Code(s): S60.221A - Contusion of right hand, initial encounter Plan: CONTINUE AUGMENTIN, CONTINUE WOUND CARE, DEBRIDEMENT BY , CONTINUE TO MONITOR (3) Unsteady gait Status: Acute Plan: CONTINUE PHYSICAL THERAPY, CONTINUE TO MONITOR
[2018-02-01] MEDS: SNACK - Diabetic Appropriate PO SCH (20:54)
[2018-02-01] MEDS: XANAX PO SCH (20:56)
[2018-02-01] MEDS: ZOCOR TAB 40 MG PO SCH (20:57)
[2018-02-02] MEDS: HumuLIN R SUBCUT PRN (06:07)
[2018-02-02 08:24] VITALS: BP 144/71
[2018-02-02] MEDS: COMBIGAN EYE DROPS EACHEYE SCH (08:45)
[2018-02-02] MEDS: HEMOCYTE-PLUS PO SCH (09:47)
[2018-02-02] MEDS: SYNTHROID 100 mcg TAB PO SCH (09:47)
[2018-02-02] MEDS: ANTIVERT TAB 25 MG PO SCH (09:48)
[2018-02-02] MEDS: GLUCOPHAGE XR PO SCH (09:48)
[2018-02-02] MEDS: NEURONTIN CAP 100 MG PO SCH (09:48)
[2018-02-02] MEDS: PLETAL PO SCH (09:48)
[2018-02-02] MEDS: ISOSORBIDE MONONITRATE ER PO SCH (09:49)
[2018-02-02] MEDS: AUGMENTIN 500 MG/125 MG TAB PO SCH (09:49)
[2018-02-02] MEDS: MICRO K EXTEN CAP 10 MEQ PO SCH (09:49)
[2018-02-02] MEDS: ASPIRIN PO SCH (09:50)
[2018-02-02] MEDS: INSULIN DEGLUDEC 14 UNIT SC SCH (10:00)
[2018-02-02] MEDS: COLACE CAP 100 MG PO SCH (13:43)
[2018-02-02] MEDS: XARELTO PO SCH (13:44)
== END 2018-02-02 14:15 | disposition home health service (06) | DRG 940 ==
LOC: MED/SURG 11:06
PROVIDERS: ADMIT Internal Medicine; ATTEND Internal Medicine
PROC: 0JBJ0ZZ Excision of Right Hand Subcutaneous Tissue and Fascia, Open Approach (ICD-10-PCS; 2018-01-23)
PROC: 0HCFXZZ Extirpation of Matter from Right Hand Skin, External Approach (ICD-10-PCS; principal; 2018-01-23 12:45)
PROC: 0JDJ3ZZ Extraction of Right Hand Subcutaneous Tissue and Fascia, Percutaneous Approach (ICD-10-PCS; 2018-01-31)
PROC: 0HRFX74 Replacement of Right Hand Skin with Autologous Tissue Substitute, Partial Thickness, External Approach (ICD-10-PCS; 2018-01-31)
PROC: 0HBHXZZ Excision of Right Upper Leg Skin, External Approach (ICD-10-PCS; 2018-01-31)
DX: Z51.89 Encounter for other specified aftercare (principal); L03.113 Cellulitis of right upper limb; S60.221A Contusion of right hand, initial encounter; W18.39XA Other fall on same level, initial encounter; Z86.73 Personal history of transient ischemic attack (TIA), and cerebral infarction without residual deficits; E03.8 Other specified hypothyroidism; I10 Essential (primary) hypertension; R53.1 Weakness; E78.2 Mixed hyperlipidemia; Z79.1 Long term (current) use of non-steroidal anti-inflammatories (NSAID); R26.81 Unsteadiness on feet; R26.89 Other abnormalities of gait and mobility; S61.401D Unspecified open wound of right hand, subsequent encounter
CPT/HCPCS: 36415; 80053; 85025; 87070; 87075; 87205; 88304; 93005; 97535; 99100; A4216; A4222; J0170; J1170; J1815; J2001; J2250; J2405; J3010; J3370; J3490; J7120